=== PATIENT | male | born 1995 | race Caucasian/White ===

== ENCOUNTER 2018-12-31 12:27 | Emergency (ER) | payer BC ==
--- NOTE | 2018-12-31 14:43 | ER ---
Nurse's Notes [facility] Name: Iain Felix Age: 23 yrs Sex: Male : 1995 Arrival Date: 12/31/2018 Time: 12:30 Bed 10 Private MD: Diagnosis: Acute bronchitis Presentation: 12/31 12:40 Presenting complaint: Patient states: i am real congested and have this cough since tw2 last Saturday, i have been spitting up the mucous its red and brownish, i feel like i am sob, i get a sharp stabbing pain in the chest, i have been throwing up and feel lightheaded, nauseous. Transition of care: patient was not received from another setting of care. Resp Distress? No respiratory distress is noted at this time. Onset of symptoms was December 31, 2018. Risk Assessment: Do you want to hurt yourself or someone else? Patient reports no desire to harm self or others. Initial Sepsis Screen: Does the patient meet any 2 criteria? HR > 90 bpm. Does the patient have a suspected source of infection? No. Patient's initial sepsis screen is negative. Care prior to arrival: None. 12:40 Method Of Arrival: Ambulatory tw2 12:40 Acuity: ZULEMA 4 tw2 Triage Assessment: 12:43 General: Appears in no apparent distress. slender, Behavior is calm, cooperative, tw2 appropriate for age. Pain: Complains of pain in chest with cough. Respiratory:. Historical: - Allergies: 12:43 No Known Allergies; tw2 - Home Meds: 12:43 None [Active]; tw2 - PMHx: 12:43 autonomic nerve disfuction last year; tw2 - PSHx: 12:43 Appendectomy; i have a link recorder implanted and it monitors my heart; tw2 - Immunization history:: Adult Immunizations Adult Immunizations up to date. - Social history:: Smoking status: Patient/guardian denies using tobacco. - Ebola Screening: : Patient denies travel to an Ebola-affected area in the 21 days before illness onset. Screenin:50 Abuse screen: Denies threats or abuse. Denies injuries from another. Nutritional iw screening: No deficits noted. Tuberculosis screening: No symptoms or risk factors identified. Fall Risk None identified. Assessment: 14:00 General: Appears in no apparent distress. comfortable. Pain:. Neuro: Level of iw Consciousness is awake, alert, obeys commands. Cardiovascular: Capillary refill < 3 seconds in bilateral fingers Patient's skin is warm and dry. Respiratory: Airway is patent Breath sounds are clear bilaterally. Derm: Skin is intact, is healthy with good turgor. Musculoskeletal: Range of motion: intact in all extremities. Vital Signs: 12:41 BP 133 / 86; Pulse 107; Resp 19; Temp 98.4(O); Pulse Ox 99% on R/A; Weight 72.57 kg tw2 (R); Height 5 ft. 9 in. (175.26 cm); Pain 8/10; 12:41 Body Mass Index 23.63 (72.57 kg, 175.26 cm) tw2 ED Course: 12:30 Patient arrived in ED. rg4 12:41 Triage completed. tw2 12:41 Arm band placed on. tw2 12:47 Garrett Tristan PA is PHCP. [facility] 12:47 Emil Casey MD is Attending Physician. [facility] 12:50 Desirae Thomson, RN is Primary Nurse. iw 13:41 Flu and/or RSV swab sent to lab. Strep swab sent to lab. iw 14:00 Patient has correct armband on for positive identification. iw 14:50 No provider procedures requiring assistance completed. Patient did not have IV access iw during this emergency room visit. Administered Medications: No medications were administered Outcome: 14:41 Discharge ordered by . [facility] 14:50 Discharged to home ambulatory, with family. iw 14:50 Condition: good 14:50 Discharge instructions given to patient, Instructed on discharge instructions, follow up and referral plans. Demonstrated understanding of instructions, follow-up care, medications. 14:50 Prescriptions given X 1. iw 14:51 Patient left the ED. iw Signatures: Garrett Tristan PA PA Desirae Cuellar, RN RN Yi Steward RN RN 2 Lilly Cota rg4
--- NOTE | 2018-12-31 14:43 | EDPHYS ---
Physician Documentation [facility] Name: Iain Felix Age: 23 yrs Sex: Male : 1995 Arrival Date: 12/31/2018 Time: 12:30 Bed 10 Private MD: ED Physician Emil Casey HPI: 12/31 13:30 This 23 yrs old Male presents to ER via Ambulatory with complaints of Cough, jmm Congestion. 13:30 The patient or guardian reports cough. Onset: The symptoms/episode began/occurred jmm gradually. Associated signs and symptoms: Pertinent positives: chest pain, with cough, fever, sore throat. This is a 23 year old male with a history of autonomic nerve dysfunction that presents to the ED with complaints of cough, sore throat, for the past 6 days. . Historical: - Allergies: 12:43 No Known Allergies; tw2 - Home Meds: 12:43 None [Active]; tw2 - PMHx: 12:43 autonomic nerve disfuction last year; tw2 - PSHx: 12:43 Appendectomy; i have a link recorder implanted and it monitors my heart; tw2 - Immunization history:: Adult Immunizations Adult Immunizations up to date. - Social history:: Smoking status: Patient/guardian denies using tobacco. - Ebola Screening: : Patient denies travel to an Ebola-affected area in the 21 days before illness onset. ROS: 13:30 Constitutional: Negative for fever, chills, and weight loss. jmm 13:30 ENT: Positive for sinus congestion, sore throat. 13:30 Cardiovascular: Positive for chest pain, with cough. 13:30 Respiratory: Positive for cough. 13:30 All other systems are negative. Exam: 13:30 Constitutional: This is a well developed, well nourished patient who is awake, alert, jmm and in no acute distress. Head/Face: atraumatic. Eyes: EOMI, no conjunctival erythema appreciated Neck: Trachea midline, Supple 13:30 Chest/axilla: Normal chest wall appearance and motion. 13:30 ENT: Posterior pharynx: erythema, that is mild. 13:30 Cardiovascular: Rate: normal, Rhythm: regular. 13:30 Respiratory: the patient does not display signs of respiratory distress, Respirations: normal, Breath sounds: are clear throughout. 13:30 Abdomen/GI: 13:30 Skin: Appearance: Color: normal in color. 13:30 Neuro: Orientation: is normal, Mentation: is normal, Memory: is normal, Gait: is steady. 13:30 Psych: Behavior/mood is pleasant, cooperative. Vital Signs: 12:41 BP 133 / 86; Pulse 107; Resp 19; Temp 98.4(O); Pulse Ox 99% on R/A; Weight 72.57 kg tw2 (R); Height 5 ft. 9 in. (175.26 cm); Pain 8/10; 12:41 Body Mass Index 23.63 (72.57 kg, 175.26 cm) tw2 MDM: 13:29 Patient medically screened. [facility] 14:36 Data reviewed: vital signs, nurses notes. Counseling: I had a detailed discussion with taylor the patient and/or guardian regarding: the historical points, exam findings, and any diagnostic results supporting the discharge/admit diagnosis, lab results, the need for outpatient follow up, to return to the emergency department if symptoms worsen or persist or if there are any questions or concerns that arise at home. ED course: Patient is alert and non toxic in appearance in the ED. Patient advised to follow up with PCP for reevaluation. Patient is otherwise given strict return precautions. . 12/31 13:05 Order name: Flu; Complete Time: 14:31 [facility] 12/31 13:05 Order name: Strep; Complete Time: 14:31 [facility] 12/31 14:19 Order name: Throat Culture EDID Administered Medications: No medications were administered Disposition: 18:50 Co-signature as Attending Physician, Emil Casey MD Available for consultation at ps1 all times. . Disposition: 12/31/18 14:41 Discharged to Home. Impression: Acute bronchitis. - Condition is Stable. - Discharge Instructions: Acute Bronchitis, Adult. - Prescriptions for cefdinir 300 mg Oral capsule - take 1 capsule by ORAL route every 12 hours for 10 days; 20 capsule. - Medication Reconciliation Form, Thank You Letter, Antibiotic Education, Prescription Opioid Use, Work release form, Family Work Release form. - Follow up: Private Physician; When: 2 - 3 days; Reason: Recheck today's complaints, Continuance of care, Re-evaluation by your physician. Signatures: Dispatcher [employer] EDMS Garrett Tristan PA PA jmm Williams, Irene, RN RN iw Yi Steward RN RN tw2 Emil Casey MD MD ps1 Corrections: (The following items were deleted from the chart) 14:51 14:41 12/31/2018 14:41 Discharged to Home. Impression: Acute bronchitis. Condition is iw Stable. Forms are Medication Reconciliation Form, Thank You Letter, Antibiotic Education, Prescription Opioid Use. Follow up: Private Physician; When: 2 - 3 days; Reason: Recheck today's complaints, Continuance of care, Re-evaluation by your physician. taylor
== END 2018-12-31 14:51 | disposition home or self-care (01) ==
LOC: ER 12:27
DX: J20.9 Acute bronchitis, unspecified (principal)
CPT/HCPCS: 87070; 87081; 87804; 99283

== ENCOUNTER 2019-04-23 02:32 | Emergency (ER) | payer BC ==
--- OUTSIDE RECORDS SUMMARY | 2019-04-23 02:34 | XMS REPORT | Clinical Summary ---
:1995 Author Organization [facility] Address [address] [place] [address] Care Team Providers Name Role Phone Asked, No Pcp Primary Care Provider Unavailable Allergies No Known Allergies Medications Not on file Active Problems Not on file Social History Tobacco Use Types Packs/Day Years Used Date Never Smoker Smokeless Tobacco: Never Used Alcohol Use Drinks/Week oz/Week Comments No Sex Assigned at Date Recorded Not on file Job Start Date Occupation Industry Not on file Not on file Not on file Travel History Travel Start Travel End No recent travel history available. Last Filed Vital Signs Not on file Plan of Treatment Health Maintenance Due Date Last Done Comments INFLUENZA VACCINE 06/11/2019 Results Not on fileafter 04/22/2018 Advance Directives Patient has advance care planning documents on file. For more information, please contact:[address] [address]
--- OUTSIDE RECORDS SUMMARY | 2019-04-23 02:35 | XMS REPORT | Clinical Summary ---
:1995 Author Organization [facility] Address [address] [facility] [place] [address] Care Team Providers Name Role Phone Brissa Primary Care Provider Allergies No Known Allergies Medications Not on file Active Problems Not on file Social History Tobacco Use Types Packs/Day Years Used Date Never Assessed Sex Assigned at Date Recorded Not on file Job Start Date Occupation Industry Not on file Not on file Not on file Travel History Travel Start Travel End No recent travel history available. 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
--- OUTSIDE RECORDS SUMMARY | 2019-04-23 02:36 | XMS REPORT | Continuity of Care Document ---
:1995 Author Organization Interface Problems Problem Status Onset Classification Date Comments Source Date Reported SCABIES Active 03/28/20 Condition 03/28/2015 [facility] RASH, SKIN Active 03/01/20 Condition 03/28/2015 [facility] SINUSITIS, ACUTE Active 09/21/20 Condition 03/28/2015 [facility] BACK PAIN Active 09/21/20 Condition 03/28/2015 [facility] Medical Group ROUTINE GENERAL Active 12/11/19 Condition 03/28/2015 [email or web address] 14 Medical CARE FACL Group SVT Active 09/23/20 Condition 03/28/2015 [facility] CHEST PAIN Active 09/23/20 Condition 03/28/2015 [facility] Medical Group SYNCOPE Active 07/28/20 Condition 03/28/2015 [facility] Medical Group LOSS OF WEIGHT Active 07/28/20 Condition 03/28/2015 [facility] MALAISE AND FATIGUE Active 07/25/20 Condition 03/28/2015 [facility] Medical Group FAMILY HISTORY OF Active Condition 03/28/2015 [facility] FAMILY HISTORY OF Active Condition 03/28/2015 [facility] FAMILY HISTORY OF Active Condition 03/28/2015 [facility]YRO[facility] DISEASE [facility] ABNORMAL Active Condition 03/28/2015 [facility] ORTHOSTATIC Active Condition 03/28/2015 [facility] Medications Medication Details Route Status Patient Ordering Order Source Instructions Provider Date ELIMITE 5 % CREA Use as Active directed on [facility] label Group MOMETASONE FUROATE apply to Active 0.1 % CREA rash tid [facility] CEFUROXIME AXETIL 1 po bid No 500 MG TABS Longer 014 Medical Active Group CYCLOBENZAPRINE 1 po q 8hrs Active HCL 10 MG TABS prn back 014 [facility] pain Group CYCLOBENZAPRINE 1 po q 8hrs Active HCL 10 MG TABS prn back 014 [facility] pain Group CYCLOBENZAPRINE 1 po q 8hrs No HCL 10 MG TABS prn back Longer 014 Medical pain Active Group MIDODRINE HCL 5 MG ONE TAB TID No TABS Longer 014 [facility] Active Group Allergies, Adverse Reactions, Alerts Substance Category Reaction Severity Reaction Status Date Comments Source type Reported Immunizations Immunization Date Given Site Status Last Comments Source Updated dT (Diphtheria and 07/08/2009 completed Medical Tetanus) booster Group MPSV4 07/08/2009 completed Medical (meningococcal Group polysaccharide vaccination) hepatitis A 07/08/2009 completed Medical immunization #1 Group dT (Diphtheria and 07/08/2009 completed Medical Tetanus) booster Group given DPT immunization #5 07/10/1999 completed Medical Group oral polio vaccine 07/10/1999 completed Medical (OPV) #4 Group MMR virus 07/10/1999 completed Medical immunization #2 Group MMR (measles, 07/10/1999 completed Medical mumps, rubella) Group virus immunization #2 DPT immunization #4 10/29/1996 completed Medical Group Hemophilus 10/29/1996 completed Medical influenza B Group immunization #4 MMR virus 10/29/1996 completed Medical immunization #1 Group MMR (measles, 10/29/1996 completed Medical mumps, rubella) Group virus immunization #1 hepatitis B vaccine 03/11/1996 completed Medical #3 Group DPT immunization #3 03/11/1996 completed Medical Group Hemophilus 03/11/1996 completed Medical influenza B Group immunization #3 oral polio vaccine 03/11/1996 completed Medical (OPV) #3 Group DPT immunization #2 01/14/1996 completed Medical Group Hemophilus 01/14/1996 completed Medical influenza B Group immunization #2 oral polio vaccine 01/14/1996 completed Medical (OPV) #2 Group Hemophilus 1995 completed Medical influenza B Group immunization #1 oral polio vaccine 1995 completed Medical (OPV) #1 Group DPT immunization #1 1995 completed Medical Group hepatitis B vaccine 1995 completed Medical #2 Group hepatitis B vaccine 1995 completed Medical #2 given Group hepatitis B vaccine 1995 completed Medical #1 Group hepatitis B vaccine 1995 completed Medical #1 given Group Results Order Name Results Value Reference Date Interpretation Comments Source Range Chemistry SODIUM 136 135 - 143 mmol/L 2013 [facility] Group Chemistry POTASSIUM 3.9 3.3 - 5.0 mmol/L 2013 [facility] Chemistry ALBUMIN 3.9 g/dL 3.5 - 5.0 2013 [facility] Chemistry CALCIUM 9.4 8.6 - 9.8 mg/dL 2013 [facility] Group Chemistry CREATININE 1.06 0.46 - 1.20 mg/dL 2013 Medical Group Chemistry BUN 13 mg/dL 10 - 22 2013 Medical Group Chemistry ALK PHOS 59 U/L 32 - 96 2013 [facility] Chemistry SGOT (AST) 20 U/L 13 - 38 2013 [facility] Chemistry SGPT (ALT) 13 U/L 8 - 36 2013 [facility] Chemistry CPK 60 U/L 18 - 164 2013 Medical Group Serology VARICELLA AB 2.50 2013 Medical Group Serology VARICELLA AB 2.50 2013 [facility] Group Vital Signs Vital Sign Value Date Comments Source Weight 138 03/28/2015 Medical Group Temperature Oral (F) 98.1 F 03/28/2015 Medical Group Systolic (mm Hg) 110 03/28/2015 Medical Group Diastolic (mm Hg) 75 03/28/2015 Medical Group Heart Rate 80 03/28/2015 Medical Group Respitory Rate 18 03/28/2015 Medical Group Weight 139 03/24/2015 Medical Group Respitory Rate 18 03/24/2015 Medical Group Systolic (mm Hg) 113 03/24/2015 Medical Group Diastolic (mm Hg) 71 03/24/2015 Medical Group Heart Rate 78 03/24/2015 Medical Group Weight 138 03/01/2015 Medical Group Systolic (mm Hg) 110 03/01/2015 Medical Group Diastolic (mm Hg) 75 03/01/2015 Medical Group Temperature Oral (F) 98.2 F 03/01/2015 Medical Group Heart Rate 76 03/01/2015 Medical Group Respitory Rate 16 03/01/2015 Medical Group Weight 130 09/21/2014 Medical Group Temperature Oral (F) 98.8 F 09/21/2014 Medical Group Systolic (mm Hg) 118 09/21/2014 [facility] Diastolic (mm Hg) 81 09/21/2014 Medical Group Heart Rate 92 09/21/2014 [facility] Weight 130 06/03/2014 [facility] Systolic (mm Hg) 108 06/03/2014 Medical Group Diastolic (mm Hg) 70 06/03/2014 [facility] Group Temperature Oral (F) 97.6 F 06/03/2014 [facility] Heart Rate 71 06/03/2014 [facility] Respitory Rate 10 06/03/2014 [facility] Weight 133 12/11/2013 Medical Group Temperature Oral (F) 97.7 F 12/11/2013 [facility] Systolic (mm Hg) 120 12/11/2013 [facility] Diastolic (mm Hg) 68 12/11/2013 Medical Group Heart Rate 76 12/11/2013 Medical Group Weight 127.8 04/23/2013 [facility] Systolic (mm Hg) 90 04/23/2013 [facility] Diastolic (mm Hg) 68 04/23/2013 [facility] Heart Rate 72 04/23/2013 [facility] Group Heart Rate 68 10/23/2012 [facility] Systolic (mm Hg) 90 10/23/2012 Medical Group Diastolic (mm Hg) 50 10/23/2012 Medical Group Weight 131.8 09/23/2012 [facility] Group Heart Rate 84 09/23/2012 [facility] Systolic (mm Hg) 98 09/23/2012 [facility] Diastolic (mm Hg) 70 09/23/2012 Medical Group Weight 131.6 09/04/2012 Medical Group Temperature Oral (F) 98.5 F 09/04/2012 Medical Group Heart Rate distal pulses 2+ 09/04/2012 [facility] Systolic (mm Hg) 90 09/04/2012 Medical Group Diastolic (mm Hg) 60 09/04/2012 Medical Group Weight 128 08/19/2012 Medical Group Heart Rate 72 08/19/2012 [facility] Systolic (mm Hg) 105 08/19/2012 [facility] Diastolic (mm Hg) 70 08/19/2012 Medical Group Weight 129.8 08/06/2012 Medical Group Heart Rate 84 08/06/2012 [facility] Systolic (mm Hg) 95 08/06/2012 Medical Group Diastolic (mm Hg) 60 08/06/2012 Medical Group Weight 123 07/28/2012 Medical Group Temperature Oral (F) 98.2 F 07/28/2012 Medical Group Respitory Rate 18 07/28/2012 Medical Group Heart Rate distal pulses 2+ 07/28/2012 Medical Group Systolic (mm Hg) 90 07/28/2012 Medical Group Diastolic (mm Hg) 60 07/28/2012 Medical Group Height 67 07/25/2012 Medical Group Weight 122 07/25/2012 Medical Group Temperature Oral (F) 98.2 F 07/25/2012 Medical Group Heart Rate 76 07/25/2012 Medical Group Systolic (mm Hg) 106 07/25/2012 Medical Group Diastolic (mm Hg) 74 07/25/2012 [facility] Group Encounters Location Location Encounter Encounter Reason Attending ADM DC Status Source Details Type Number For Provider Date Date Visit [facility] Lab Report [id number] Majid 06/03 06/03 [place] [facility] 510 MD Rambo /2013 Medical [facility] Office [id number] Majid 06/03 06/03 [place] Visit 010 MD Rambo /2013 Medical [facility] Lab Report [id number] Horace 09/21 09/21 [place] [facility] 810 LISA Hernández /2013 Medical [facility] Lab Report [id number] Horace 11/14 11/14 [address] LISA Hernández /2014 Medical Medical [facility] Office [id number] [facility] 03/01 03/01 [place] Medical Visit 210 LISA Hernández /2014 Medical [facility] Practice [facility] Office [id number] Majid 03/24 03/24 [place] Medical Visit 830 MD Rambo /2014 Medical [facility] Cardiology [facility] Office [id number] Majid 03/28 03/28 [place] Medical Visit 830 MD Rambo /2014 [facility] Procedures Procedure Code Date Perfomer Comments Source echocardiogram, [address] 08/12/2012 Complete Medical [facility]
--- OUTSIDE RECORDS SUMMARY | 2019-04-23 02:36 | XMS REPORT | Continuity of Care Document ---
:1995 Author Organization [facility] Care Team Providers Name Role Phone MD Rambo, Vickie Unavailable Unavailable Insurance Providers Payer name Policy type / Policy ID Covered constitution party ID Policy Thrasher Coverage type BCBS PPO PRIMARY HUMANA CHOICE CARE PRIMARY HUMANA - NATIONAL POS - OPEN ACCESS *SELF PAY* HUMANA - NATIONAL POS - OPEN ACCESS RH ADMINISTRATORS - MULTIPLAN (PPO) HUMANA - NATIONAL POS - OPEN ACCESS HUMANA - NATIONAL POS - OPEN ACCESS HUMANA - NATIONAL POS - OPEN ACCESS *SELF PAY* HUMANA - NATIONAL POS - OPEN ACCESS *SELF PAY* HUMANA - NATIONAL POS - OPEN ACCESS *SELF PAY* HUMANA - NATIONAL POS - OPEN ACCESS HUMANA - CHOICECARE (POS) RH ADMINISTRATORS - MULTIPLAN (PPO) *SELF PAY* HUMANA - NATIONAL POS - OPEN ACCESS RH ADMINISTRATORS - MULTIPLAN (PPO) *SELF PAY* HUMANA - NATIONAL POS - OPEN ACCESS RH ADMINISTRATORS - MULTIPLAN (PPO) *SELF PAY* HUMANA - NATIONAL POS - OPEN ACCESS RH ADMINISTRATORS - MULTIPLAN (PPO) HUMANA - CHOICECARE (POS) *SELF PAY* HUMANA - NATIONAL POS - OPEN ACCESS HUMANA - CHOICECARE (POS) *SELF PAY* HUMANA - NATIONAL POS - OPEN ACCESS Encounters Encounter Performer Location Date Office Visit Vickie Ricks MD [facility] Jun 03, 2014 Practice Problems Problem Effective Dates Problem Status FAMILY HISTORY OF DIABETES Active FAMILY HISTORY OF HYPERTENSION Active FAMILY HISTORY OF THYROID DISEASE Active MALAISE AND FATIGUE Jul 25, 2012 Active SYNCOPE Jul 28, 2012 Active LOSS OF WEIGHT Jul 28, 2012 Active ABNORMAL ELECTROCARDIOGRAM Active SVT Sep 23, 2012 Active CHEST PAIN Sep 23, 2012 Active ORTHOSTATIC HYPOTENSION Active ROUTINE GENERAL MEDICAL EXAM@[facility] Dec 11, 2013 Active Procedures Date Description Comments Jul 25, 2012 smoking status never smoker Aug 12, 2012 echocardiogram, complete Complete Apr 23, 2013 smoking status never smoker Jun 03, 2014 smoking status Never smoker Medications Medication Instructions Start Date Status MIDODRINE HCL 5 MG TABS ONE TAB TID Inactive Immunizations Vaccine Date Status hepatitis B vaccine #1 1995 completed hepatitis B vaccine #2 1995 completed hepatitis B vaccine #3 March 11, 1996 completed DPT immunization #1 1995 completed DPT immunization #2 Jan 14, 1996 completed DPT immunization #3 March 11, 1996 completed DPT immunization #4 Oct 29, 1996 completed DPT immunization #5 Jul 10, 1999 completed Hemophilus influenza B immunization #1 1995 completed Hemophilus influenza B immunization #2 Jan 14, 1996 completed Hemophilus influenza B immunization #3 March 11, 1996 completed Hemophilus influenza B immunization #4 Oct 29, 1996 completed oral polio vaccine (OPV) #1 1995 completed oral polio vaccine (OPV) #2 Jan 14, 1996 completed oral polio vaccine (OPV) #3 March 11, 1996 completed oral polio vaccine (OPV) #4 Jul 10, 1999 completed MMR virus immunization #1 Oct 29, 1996 completed MMR virus immunization #2 Jul 10, 1999 completed dT (Diphtheria and Tetanus) booster Jul 08, 2009 completed MPSV4 (meningococcal polysaccharide vaccination) Jul 08, 2009 completed hepatitis A immunization #1 Jul 08, 2009 completed Vital Signs Date Description Test Result Jul 25, 2012 height E&M HEIGHT 67 in Jul 25, 2012 weight E&M WEIGHT 122 lb Jul 25, 2012 temperature E&M TEMPERATURE 98.2 deg f Jul 25, 2012 pulse rate E&M PULSE RATE 76 /min Jul 25, 2012 blood pressure, systolic BP SYSTOLIC 106 mm Hg Jul 25, 2012 blood pressure, diastolic BP DIASTOLIC 74 mm Hg Jul 28, 2012 weight E&M WEIGHT 123 lb Jul 28, 2012 temperature E&M TEMPERATURE 98.2 deg f Jul 28, 2012 respiratory rate E&M RESP RATE 18 /min Jul 28, 2012 pulse rate E&M PULSE RATE distal pulses 2+ /min Jul 28, 2012 blood pressure, systolic BP SYSTOLIC 90 mm Hg Jul 28, 2012 blood pressure, diastolic BP DIASTOLIC 60 mm Hg Aug 06, 2012 weight E&M WEIGHT 129.8 lb Aug 06, 2012 pulse rate E&M PULSE RATE 84 /min Aug 06, 2012 blood pressure, systolic, sitting, BP SYS SIT L 95 mm Hg left arm Aug 06, 2012 blood pressure, diastolic, sitting, BP ERICH SIT L 60 mm Hg left arm Aug 06, 2012 pulse rate, sitting, left PULSE SIT L 84 /min Aug 19, 2012 weight E&M WEIGHT 128 lb Aug 19, 2012 pulse rate E&M PULSE RATE 72 /min Aug 19, 2012 blood pressure, systolic, sitting, BP SYS SIT L 105 mm Hg left arm Aug 19, 2012 blood pressure, diastolic, sitting, BP ERICH SIT L 70 mm Hg left arm Aug 19, 2012 pulse rate, sitting, left PULSE SIT L 72 /min Aug 19, 2012 blood pressure, systolic BP SYSTOLIC 105 mm Hg Aug 19, 2012 blood pressure, diastolic BP DIASTOLIC 70 mm Hg Sep 04, 2012 weight E&M WEIGHT 131.6 lb Sep 04, 2012 temperature E&M TEMPERATURE 98.5 deg f Sep 04, 2012 pulse rate E&M PULSE RATE distal pulses 2+ /min Sep 04, 2012 blood pressure, systolic BP SYSTOLIC 90 mm Hg Sep 04, 2012 blood pressure, diastolic BP DIASTOLIC 60 mm Hg Sep 23, 2012 weight E&M WEIGHT 131.8 lb Sep 23, 2012 pulse rate E&M PULSE RATE 84 /min Sep 23, 2012 pulse rate, sitting, left PULSE SIT L 84 /min Sep 23, 2012 blood pressure, systolic, sitting, BP SYS SIT L 98 mm Hg left arm Sep 23, 2012 blood pressure, diastolic, sitting, BP ERICH SIT L 70 mm Hg left arm Sep 23, 2012 blood pressure, systolic BP SYSTOLIC 98 mm Hg Sep 23, 2012 blood pressure, diastolic BP DIASTOLIC 70 mm Hg Oct 23, 2012 pulse rate E&M PULSE RATE 68 /min Oct 23, 2012 pulse rate, sitting, left PULSE SIT L 68 /min Oct 23, 2012 blood pressure, systolic, sitting, BP SYS SIT L 90 mm Hg left arm Oct 23, 2012 blood pressure, diastolic, sitting, BP ERICH SIT L 50 mm Hg left arm Oct 23, 2012 blood pressure, systolic BP SYSTOLIC 90 mm Hg Oct 23, 2012 blood pressure, diastolic BP DIASTOLIC 50 mm Hg Apr 23, 2013 weight E&M WEIGHT 127.8 lb Apr 23, 2013 blood pressure, systolic, sitting, BP SYS SIT L 90 mm Hg left arm Apr 23, 2013 blood pressure, diastolic, sitting, BP ERICH SIT L 68 mm Hg left arm Apr 23, 2013 pulse rate, sitting, left PULSE SIT L 72 /min Apr 23, 2013 blood pressure, systolic BP SYSTOLIC 90 mm Hg Apr 23, 2013 pulse rate E&M PULSE RATE 72 /min Apr 23, 2013 blood pressure, diastolic BP DIASTOLIC 68 mm Hg Dec 11, 2013 weight E&M WEIGHT 133 lb Dec 11, 2013 temperature E&M TEMPERATURE 97.7 deg f Dec 11, 2013 blood pressure, systolic BP SYSTOLIC 120 mm Hg Dec 11, 2013 blood pressure, diastolic BP DIASTOLIC 68 mm Hg Dec 11, 2013 pulse rate E&M PULSE RATE 76 /min Jun 03, 2014 weight E&M WEIGHT 130 lb Jun 03, 2014 blood pressure, systolic BP SYSTOLIC 108 mm Hg Jun 03, 2014 blood pressure, diastolic BP DIASTOLIC 70 mm Hg Jun 03, 2014 temperature E&M TEMPERATURE 97.6 deg f Jun 03, 2014 pulse rate E&M PULSE RATE 71 /min Jun 03, 2014 respiratory rate E&M RESP RATE 10 /min
--- OUTSIDE RECORDS SUMMARY | 2019-04-23 02:36 | XMS REPORT | Continuity of Care Document ---
:[address] [facility] Care Team Providers Name Role Phone [...] - OPEN ACCESS *SELF PAY* HUMANA - CHOICECARE (POS) HUMANA - NATIONAL POS - OPEN ACCESS *SELF PAY* HUMANA - CHOICECARE (POS) HUMANA - NATIONAL POS - OPEN ACCESS *SELF PAY* HUMANA - CHOICECARE (POS) HUMANA - NATIONAL POS - OPEN ACCESS Encounters Encounter Performer Location Date Lab Report Vickie Ricks MD [facility] Jun 03, 2014 Problems Problem Effective Dates Problem Status FAMILY [...] respiratory rate E&M RESP RATE 10 /min Results Date Description Test Name Value Reference Interpretation Status Jun 03, 2014 varicella zoster VARICELLA AB 2.50 null High antibody, IgG, serum
--- OUTSIDE RECORDS SUMMARY | 2019-04-23 02:37 | XMS REPORT | Continuity of Care Document ---
:1995 Author Organization [facility] Care Team Providers Name Role Phone LISA Hernández, Horace Hurtado Unavailable Insurance Providers Payer name Policy type / Policy ID Covered democrat ID Policy Thrasher Coverage type BCBS PPO [...] ACCESS *SELF PAY* HUMANA - CHOICECARE (POS) *SELF PAY* HUMANA - NATIONAL POS - OPEN ACCESS *SELF PAY* HUMANA - CHOICECARE (POS) *SELF PAY* HUMANA - NATIONAL POS - OPEN ACCESS *SELF PAY* HUMANA - CHOICECARE (POS) *SELF PAY* HUMANA - NATIONAL POS - OPEN ACCESS *SELF PAY* HUMANA - CHOICECARE (POS) *SELF PAY* HUMANA - NATIONAL POS - OPEN ACCESS *SELF PAY* HUMANA - CHOICECARE (POS) *SELF PAY* HUMANA - NATIONAL POS - OPEN ACCESS Encounters Encounter Performer Location Date Lab Report LISA [place] [facility] Sep 21, 2014 Practice Problems Problem Effective Dates Problem [...] [email or web address][facility] Dec 11, 2013 Active SINUSITIS, ACUTE MAXILLARY Sep 21, 2014 Active BACK PAIN Sep 21, 2014 Active Procedures Date Description Comments Jul 25, 2012 smoking status never smoker Aug 12, 2012 echocardiogram, complete Complete Apr 23, 2013 smoking status never smoker Jun 03, 2014 smoking status Never smoker Sep 21, 2014 smoking status Never smoker Medications Medication Instructions Start Date Status MIDODRINE HCL 5 MG TABS ONE TAB TID Inactive CEFUROXIME AXETIL 500 MG TABS 1 po bid Sep 21, 2014 Active CYCLOBENZAPRINE HCL 10 MG TABS 1 po q 8hrs prn back pain Sep 21, 2014 Active Immunizations Vaccine Date Status hepatitis B vaccine #1 given 1995 completed hepatitis B vaccine #2 given 1995 completed hepatitis B vaccine #3 March [...] (OPV) #4 Jul 10, 1999 completed MMR (measles, mumps, rubella) virus immunization #1 Oct 29, 1996 completed MMR (measles, mumps, rubella) virus immunization #2 Jul 10, 1999 completed dT (Diphtheria and Tetanus) booster given Jul 08, 2009 completed MPSV4 (meningococcal polysaccharide vaccination) Jul 08, 2009 completed hepatitis A immunization #1 Jul 08, 2009 completed Vital Signs Date Description Test Result Jul 25, 2012 height E&M - 8302-2 HEIGHT 67 in Jul 25, 2012 weight E&M - 3141-9 WEIGHT 122 lb Jul 25, 2012 temperature E&M TEMPERATURE 98.2 deg f Jul 25, 2012 pulse rate E&M - 8867-4 PULSE RATE 76 /min Jul 25, 2012 blood pressure, systolic - 8480-6 BP SYSTOLIC 106 mm Hg Jul 25, 2012 blood pressure, diastolic - 8462-4 BP DIASTOLIC 74 mm Hg Jul 28, 2012 weight E&M - 3141-9 WEIGHT 123 lb Jul 28, 2012 temperature E&M TEMPERATURE 98.2 deg f Jul 28, 2012 respiratory rate E&M - 9279-1 RESP RATE 18 /min Jul 28, 2012 pulse rate E&M - 8867-4 PULSE RATE distal pulses 2+ /min Jul 28, 2012 blood pressure, systolic - 8480-6 BP SYSTOLIC 90 mm Hg Jul 28, 2012 blood pressure, diastolic - 8462-4 BP DIASTOLIC 60 mm Hg Aug 06, 2012 weight E&M - 3141-9 WEIGHT 129.8 lb Aug 06, 2012 pulse rate E&M - 8867-4 PULSE RATE 84 /min Aug 06, 2012 blood pressure, systolic, sitting, BP SYS SIT L 95 mm Hg left arm Aug 06, 2012 blood pressure, diastolic, sitting, BP ERICH SIT L 60 mm Hg left arm Aug 06, 2012 pulse rate, sitting, left PULSE SIT L 84 /min Aug 19, 2012 weight E&M - 3141-9 WEIGHT 128 lb Aug 19, 2012 pulse rate E&M - 8867-4 PULSE RATE 72 /min Aug 19, 2012 blood pressure, systolic, sitting, BP SYS SIT L 105 mm Hg left arm Aug 19, 2012 blood pressure, diastolic, sitting, BP ERICH SIT L 70 mm Hg left arm Aug 19, 2012 pulse rate, sitting, left PULSE SIT L 72 /min Aug 19, 2012 blood pressure, systolic - 8480-6 BP SYSTOLIC 105 mm Hg Aug 19, 2012 blood pressure, diastolic - 8462-4 BP DIASTOLIC 70 mm Hg Sep 04, 2012 weight E&M - 3141-9 WEIGHT 131.6 lb Sep 04, 2012 temperature E&M TEMPERATURE 98.5 deg f Sep 04, 2012 pulse rate E&M - 8867-4 PULSE RATE distal pulses 2+ /min Sep 04, 2012 blood pressure, systolic - 8480-6 BP SYSTOLIC 90 mm Hg Sep 04, 2012 blood pressure, diastolic - 8462-4 BP DIASTOLIC 60 mm Hg Sep 23, 2012 weight E&M - 3141-9 WEIGHT 131.8 lb Sep 23, 2012 pulse rate E&M - 8867-4 PULSE RATE 84 /min Sep 23, 2012 pulse rate, sitting, left PULSE SIT L 84 /min Sep 23, 2012 blood pressure, systolic, sitting, BP SYS SIT L 98 mm Hg left arm Sep 23, 2012 blood pressure, diastolic, sitting, BP ERICH SIT L 70 mm Hg left arm Sep 23, 2012 blood pressure, systolic - 8480-6 BP SYSTOLIC 98 mm Hg Sep 23, 2012 blood pressure, diastolic - 8462-4 BP DIASTOLIC 70 mm Hg Oct 23, 2012 pulse rate E&M - 8867-4 PULSE RATE 68 /min Oct 23, 2012 pulse rate, sitting, left PULSE SIT L 68 /min Oct 23, 2012 blood pressure, systolic, sitting, BP SYS SIT L 90 mm Hg left arm Oct 23, 2012 blood pressure, diastolic, sitting, BP ERICH SIT L 50 mm Hg left arm Oct 23, 2012 blood pressure, systolic - 8480-6 BP SYSTOLIC 90 mm Hg Oct 23, 2012 blood pressure, diastolic - 8462-4 BP DIASTOLIC 50 mm Hg Apr 23, 2013 weight E&M - 3141-9 WEIGHT 127.8 lb Apr 23, 2013 blood pressure, systolic, sitting, BP SYS SIT L 90 mm Hg left arm Apr 23, 2013 blood pressure, diastolic, sitting, BP ERICH SIT L 68 mm Hg left arm Apr 23, 2013 pulse rate, sitting, left PULSE SIT L 72 /min Apr 23, 2013 blood pressure, systolic - 8480-6 BP SYSTOLIC 90 mm Hg Apr 23, 2013 pulse rate E&M - 8867-4 PULSE RATE 72 /min Apr 23, 2013 blood pressure, diastolic - 8462-4 BP DIASTOLIC 68 mm Hg Dec 11, 2013 weight E&M - 3141-9 WEIGHT 133 lb Dec 11, 2013 temperature E&M TEMPERATURE 97.7 deg f Dec 11, 2013 blood pressure, systolic - 8480-6 BP SYSTOLIC 120 mm Hg Dec 11, 2013 blood pressure, diastolic - 8462-4 BP DIASTOLIC 68 mm Hg Dec 11, 2013 pulse rate E&M - 8867-4 PULSE RATE 76 /min Jun 03, 2014 weight E&M - 3141-9 WEIGHT 130 lb Jun 03, 2014 blood pressure, systolic - 8480-6 BP SYSTOLIC 108 mm Hg Jun 03, 2014 blood pressure, diastolic - 8462-4 BP DIASTOLIC 70 mm Hg Jun 03, 2014 temperature E&M TEMPERATURE 97.6 deg f Jun 03, 2014 pulse rate E&M - 8867-4 PULSE RATE 71 /min Jun 03, 2014 respiratory rate E&M - 9279-1 RESP RATE 10 /min Sep 21, 2014 weight E&M - 3141-9 WEIGHT 130 lb Sep 21, 2014 temperature E&M TEMPERATURE 98.8 deg f Sep 21, 2014 blood pressure, systolic - 8480-6 BP SYSTOLIC 118 mm Hg Sep 21, 2014 blood pressure, diastolic - 8462-4 BP DIASTOLIC 81 mm Hg Sep 21, 2014 pulse rate E&M - 8867-4 PULSE RATE 92 /min Results Date Description Test Name Value Reference Interpretation Status Sep 21, sodium, serum SODIUM 136 mmol/L [phone] Sep 21, potassium, serum POTASSIUM 3.9 mmol/L 3.3-5.0 2013Sep 21, albumin, serum ALBUMIN 3.9 g/dL 3.5-5.0 2013Sep 21, calcium, serum CALCIUM 9.4 mg/dL 8.6-9.8 2013Sep 21, creatinine, serum CREATININE 1.06 mg/dL 0.46-1.20 2013Sep 21, urea nitrogen, blood BUN 13 mg/dL 10-22 2013Sep 21, alkaline phosphatase, ALK PHOS 59 U/L 32-96 2013 serum Sep 21, aspartate SGOT (AST) 20 U/L 13-38 2013 aminotransferase (SGOT), serum Sep 21, alanine SGPT (ALT) 13 U/L 8-36 2013 aminotransferase (SGPT), serum Sep 21, creatine kinase, CPK 60 U/L 18-164 2013 serum Jun 03, varicella zoster VARICELLA AB 2.50 null High 2013 antibody, IgG, serum
--- OUTSIDE RECORDS SUMMARY | 2019-04-23 02:37 | XMS REPORT | Continuity of Care Document ---
:1995 Author Organization [facility] Care Team Providers Name Role Phone LISA [...] Performer Location Date Lab Report LISA [place] [facility] [place] Nov 14, 2014 Problems Problem Effective Dates Problem Status [...] TABS 1 po bid Sep 21, 2014 Inactive CYCLOBENZAPRINE HCL 10 MG TABS 1 po [...] 23, 2012 blood pressure, diastolic, sitting, BP REICH SIT L 50 mm Hg left arm [...] Sep 21, sodium, serum SODIUM 136 mmol/L [phone] Sep 21, potassium, serum POTASSIUM 3.9 mmol/L [...]
--- OUTSIDE RECORDS SUMMARY | 2019-04-23 02:38 | XMS REPORT | Continuity of Care Document ---
:1995 Author Organization [facility] Care Team Providers Name Role Phone LISA [...] Performer Location Date Lab Report LISA [place] [facility] [place] Nov 14, 2014 Problems Problem Effective Dates [...] Sep 21, sodium, serum SODIUM 136 mmol/L [phone] Sep 21, potassium, serum POTASSIUM 3.9 mmol/L [...]
--- OUTSIDE RECORDS SUMMARY | 2019-04-23 02:38 | XMS REPORT | Continuity of Care Document ---
:1995 Author Organization [facility] Care Team Providers Name Role Phone LISA Hernández, Horace Hurtado Unavailable Insurance Providers Payer name Policy type / Policy ID Covered libertarian ID Policy Thrasher Coverage type BCBS PPO [...] Encounters Encounter Performer Location Date Office Visit LISA [place] [facility] Mar 01, 2015 Practice Problems Problem Effective Dates Problem Status [...] Active BACK PAIN Sep 21, 2014 Active RASH, SKIN Mar 01, 2015 Active Procedures Date Description Comments Jul 25, 2012 smoking status never smoker Aug 12, 2012 echocardiogram, complete Complete Apr 23, 2013 smoking status never smoker Jun 03, 2014 smoking status Never smoker Sep 21, 2014 smoking status Never smoker Mar 01, 2015 smoking status Never smoker Medications Medication Instructions Start Date Status MIDODRINE HCL 5 MG TABS ONE TAB TID Inactive CEFUROXIME AXETIL 500 MG TABS 1 po bid Sep 21, 2014 Inactive CYCLOBENZAPRINE HCL 10 MG TABS 1 po q 8hrs prn back pain Sep 21, 2014 Inactive MOMETASONE FUROATE 0.1 % CREA apply to rash tid Mar 01, 2015 Active Immunizations Vaccine Date Status hepatitis B [...] E&M - 8867-4 PULSE RATE 92 /min Mar 01, 2015 weight E&M - 3141-9 WEIGHT 138 lb Mar 01, 2015 blood pressure, systolic - 8480-6 BP SYSTOLIC 110 mm Hg Mar 01, 2015 blood pressure, diastolic - 8462-4 BP DIASTOLIC 75 mm Hg Mar 01, 2015 temperature E&M TEMPERATURE 98.2 deg f Mar 01, 2015 pulse rate E&M - 8867-4 PULSE RATE 76 /min Mar 01, 2015 respiratory rate E&M - 9279-1 RESP RATE 16 /min Results Date Description Test Name Value Reference Interpretation Status Sep 21, sodium, serum SODIUM 136 mmol/L [phone] Sep 21, potassium, serum POTASSIUM 3.9 mmol/L [...]
--- OUTSIDE RECORDS SUMMARY | 2019-04-23 02:39 | XMS REPORT | Continuity of Care Document ---
:1995 Author Organization [facility] Care Team Providers Name Role Phone MD Rambo, Vickie Unavailable Unavailable Insurance Providers Payer name Policy type / Policy ID Covered alliance party ID Policy Thrasher Coverage type BCBS [...] Location Date Office Visit Vickie Ricks MD [facility] March Problems Problem Effective Dates Problem Status FAMILY [...] Mar 01, 2015 smoking status Never smoker March 24, 2015 smoking status Never smoker Medications Medication [...] E&M - 9279-1 RESP RATE 16 /min March 24, 2015 weight E&M - 3141-9 WEIGHT 139 lb March 24, 2015 respiratory rate E&M - 9279-1 RESP RATE 18 /min March 24, 2015 blood pressure, systolic, sitting, BP SYS SIT L 113 mm Hg left arm March 24, 2015 blood pressure, diastolic, sitting, BP ERICH SIT L 71 mm Hg left arm March 24, 2015 pulse rate, sitting, left PULSE SIT L 78 /min March 24, 2015 blood pressure, systolic - 8480-6 BP SYSTOLIC 113 mm Hg March 24, 2015 pulse rate E&M - 8867-4 PULSE RATE 78 /min March 24, 2015 blood pressure, diastolic - 8462-4 BP DIASTOLIC 71 mm Hg Results Date Description Test Name Value Reference Interpretation Status Sep 21, sodium, serum SODIUM 136 mmol/L [phone] Sep 21, potassium, serum POTASSIUM 3.9 mmol/L [...]
--- OUTSIDE RECORDS SUMMARY | 2019-04-23 02:40 | XMS REPORT | Continuity of Care Document ---
:1995 Author Organization [facility] Care Team Providers Name Role Phone MD Rambo, Vickie Unavailable Unavailable Insurance Providers Payer name Policy type / Policy ID Covered republican ID Policy Thrasher Coverage type BCBS PPO [...] Location Date Office Visit Vickie Ricks MD [facility] March 28, 2015 Practice Problems Problem Effective Dates Problem [...] Active RASH, SKIN Mar 01, 2015 Active SCABIES March 28, 2015 Active Procedures Date Description Comments Jul 25, 2012 smoking status never smoker Aug 12, 2012 echocardiogram, complete Complete Apr 23, 2013 smoking status never smoker Jun 03, 2014 smoking status Never smoker Sep 21, 2014 smoking status Never smoker Mar 01, 2015 smoking status Never smoker March 24, 2015 smoking status Never smoker March 28, 2015 smoking status Never smoker Medications Medication Instructions Start Date Status MIDODRINE HCL 5 MG TABS ONE TAB TID Inactive CEFUROXIME AXETIL 500 MG TABS 1 po bid Sep 21, 2014 Inactive CYCLOBENZAPRINE HCL 10 MG TABS 1 po q 8hrs prn back pain Sep 21, 2014 Inactive MOMETASONE FUROATE 0.1 % CREA apply to rash tid Mar 01, 2015 Active ELIMITE 5 % CREA Use as directed on label March 28, 2015 Active Immunizations Vaccine Date Status hepatitis [...] 74 mm Hg Jul 28, 2012 weight E&Marly - 3141-9 WEIGHT 123 lb Jul 28, [...] L 84 /min Aug 19, 2012 weight Juliana&Marly - 3141-9 WEIGHT 128 lb Aug 19, [...] 70 mm Hg Sep 04, 2012 weight Juliana&Marly - 3141-9 WEIGHT 131.6 lb Sep 04, [...] - 8462-4 BP DIASTOLIC 71 mm Hg March 28, 2015 weight E&M - 3141-9 WEIGHT 138 lb March 28, 2015 temperature E&M TEMPERATURE 98.1 deg f March 28, 2015 blood pressure, systolic - 8480-6 BP SYSTOLIC 110 mm Hg March 28, 2015 blood pressure, diastolic - 8462-4 BP DIASTOLIC 75 mm Hg March 28, 2015 pulse rate E&M - 8867-4 PULSE RATE 80 /min March 28, 2015 respiratory rate E&M - 9279-1 RESP RATE 18 /min Results Date Description Test Name Value Reference Interpretation Status Sep 21, sodium, serum SODIUM 136 mmol/L [phone] Sep 21, potassium, serum POTASSIUM 3.9 mmol/L [...] varicella zoster VARICELLA AB 2.50 null High 2014 antibody, IgG, serum
--- OUTSIDE RECORDS SUMMARY | 2019-04-23 02:40 | XMS REPORT | Summary of Care ---
:1995 Author Name ISAIAH YAO M.D. Address Unavailable Unavailable , Care Team Providers Name Role Phone MAXIMILIAN Johnston, ISAIAH Unavailable Unavailable Kelly Beltran M.A. Unavailable Unavailable RAMAN DOWELL, NICK CHAUHAN Unavailable Unavailable Abbey DOWELL, Simeon Unavailable Unavailable MAXIMILIAN DOWELL MI, ISAIAH Unavailable Unavailable Unavailable Unavailable Unavailable Functional Status Name Dates Details Functional status health issues are not documented Status: Name Dates Details Cognitive status health issues are not documented Status: Problems Name Dates Details Non-smoker (V49.89, Z78.9) Status: Active Autonomic neuropathy (337.9, G90.9) Status: Active Chronic pain (338.29, G89.29) Status: Active Headache (784.0, R51) Status: Active History of Lyme disease (V12.09, Z86.19) Status: Active White matter abnormality on MRI of brain (793.0, R93.0) Status: Active Fever (780.60, R50.9) Status: Active Joint pain (719.40, M25.50) Status: Active Night sweats (780.8, R61) Status: Active Accelerated essential hypertension (401.0, I10) Status: Active Essential (primary) hypertension (401.9, I10) Status: Active Dysautonomia (337.9, G90.1) Status: Active Medications Name Dates Details Gabapentin 100 MG Oral Capsule TAKE 1 CAPSULE BEDTIME.MAY INCREASE TO 3 CAPSULES AT BEDTIME TOLERATED. Quantity: 90 Refills: 11 ISAIAH YAO M.D. Start : 05-Jun-2017 Active Gabapentin 100 MG Oral Capsule TAKE 4 CAPSULE BEDTIME Quantity: 120 Refills: 11 ISAIAH YAO M.D. Start : 15-Aug-2017 Active Amoxicillin 500 MG Oral Tablet TAKE 1 TABLET 3 TIMES DAILY Quantity: 21 Refills: 0 ISAIAH YAO M.D. Start : 28-Aug-2017 Active Allergies and Adverse Reactions Name Dates Details No Known Drug Allergies (Allergy) Status: Active Past Medical History Name Dates Details History of transient cerebral ischemia (V12.54, Z86.73) Status: Resolved History of Vasovagal syncope (780.2, R55) Status: Resolved Procedures Procedure Dates Details Procedures not documented Immunization Name Dates Details Immunizations not documented Family History Name Dates Details Family history of hypertension (V17.49, Z82.49) Status: Active Family history of asthma (V17.5, Z82.5) Status: Active Family history of angina (V17.49, Z82.49) Status: Active Social History Name Dates Details Unknown if ever smoked Vital Signs Date Test Result Details No Known Vitals to report Results Date Description Value Details Results not documented Plan of Care Name Dates Details Planned Observations Planned Goals not documented Interventions Provided Medication ChangesAmoxicillin 500 MG Oral Tablet - Start Instructions Name Dates Details Instructions not documented Encounters Appointment; SIMEON ORDONEZ M.D. On: 04-Jul-2016 11:30 Encounter Diagnosis: Problem not documented Appointment; [employer] On: 25-Jul-2016 10:15 Encounter Diagnosis: Problem not documented Appointment; SIMEON ORDONEZ M.D. On: 29-Aug-2016 11:15 Encounter Diagnosis: Problem not documented Appointment; [facility] On: 20-Sep-2016 11:30 Encounter Diagnosis: Problem not documented Appointment; LAURA OLIVEROS On: 24-Sep-2016 15:30 Encounter Diagnosis: Problem not documented Appointment; SIMEON ORDONEZ M.D. On: 10-Oct-2016 11:00 Encounter Diagnosis: Problem not documented Appointment; LAURA OLIVEROS On: 23-Jan-2017 9:00 Encounter Diagnosis: Problem not documented Appointment; SIMEON ORDONEZ M.D. On: 23-Apr-2017 9:30 Encounter Diagnosis: Problem not documented Appointment; ISAIAH YAO M.D. On: 05-Jun-2017 8:30 Encounter Diagnosis: Problem not documented Appointment; SIMEON ORDONEZ M.D. On: 07-Aug-2017 9:30 Encounter Diagnosis: Problem not documented Appointment; ISAIAH YAO M.D. On: 15-Aug-2017 9:00 Encounter Diagnosis: Problem not documented
--- OUTSIDE RECORDS SUMMARY | 2019-04-23 02:40 | XMS REPORT ---
:1995 [facility] Address [address] [place] [address] Care Team Providers Name Role Phone DR YESSENIA JOYA Unavailable Unavailable DR CHANELLE GALLEGOS Unavailable Unavailable Problems This patient has no known problems. Allergies, Adverse Reactions, Alerts This patient has no known allergies or adverse reactions. Medications This patient has no known medications. Encounters Start End Encounter Admission Attending Care Care Encounter Date/Time Date/Time Type Type Clinicians Facility Department ID 2018-04-16 2018-04-16 Outpatient E YESSENIA JOYA [facility] [id number] 13:32:00 14:17:00 2016-05-30 2016-06-01 Outpatient E ROSY [facility] [id number] 00:59:00 11:15:00 CHANELLE Results Test Description Test Time Test Comments Text Results Atomic Results Result Comments XR HAND LEFT COMPLETE 3 2018-04-16 14:17:15 Left hand, 3 viewsLocation code: VIEWS *OW* [id number] HISTORY: [id number]: Traumatic injuryCOMMENTS: AP, lateral, and oblique views of the left hand demonstrate no acutefracture or malalignment. The soft tissues are unremarkable.IMPRESSION: No acute radiographic abnormality.
[2019-04-23] MEDS ORDERED: MEPERIDINE HCL 25 MG/0.5 ML ONE (03:15)
[2019-04-23] MEDS ORDERED: ONDANSETRON 4 MG/2 ML VIAL ONE (03:16)
[2019-04-23] MEDS ORDERED: ACETAMINOPHEN 325 MG TABLET ONE (03:16)
[2019-04-23] MEDS ORDERED: NA CHLORIDE 0.9% 1,000 ML ONE (03:16)
[2019-04-23 03:22] LABS: Absolute Lymphocytes (CBC) 0.3 K/uL (0.7-4.9); Absolute Monocytes 0.4 K/uL (0.1-1.3); Basophils % 0.3 % (0-1.3); Eosinophils % 0.1 % (0-4.4); Hematocrit 44.1 % (39.6-49.0); Lymphocytes % 4.1 % (15.3-44.8); MPV 8.6 fL (7.6-11.3); Monocytes % 4.7 % (3.3-12.3); RBC Red Blood Cell Count 5.22 M/uL (4.33-5.43)
[2019-04-23 03:36] LABS: ALT/SGPT 20 U/L (12-78); AST/SGOT 16 U/L (15-37); Albumin 4.2 g/dL (3.4-5.0); Alkaline Phosphatase 65 U/L (45-117); BUN Blood Urea Nitrogen 15 mg/dL (7-18); Bicarbonate 24 mmol/L (21-32); Bilirubin Direct 0.2 mg/dL (0-0.2); Bilirubin Total 0.8 mg/dL (0.2-1.0); Glucose Level 114 mg/dL (74-106); Lipase 68 U/L (73-393); Potassium 3.8 mmol/L (3.5-5.1); Protein, Total 8.1 g/dL (6.4-8.2); Sodium Level 136 mmol/L (136-145); Troponin (Emerg Dept Use Only) < 0.02 ng/mL (0.0-0.045)
[2019-04-23 04:03] LABS: Blood Morphology Comment NOT SEEN (NOT SEEN); Platelet Estimate ADEQ; Urine White Blood Cell Casts OK
--- NOTE | 2019-04-23 05:15 | ER ---
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 Transition of care: patient was not received from another setting of care. Onset of symptoms was April 22, 2019 at 21:00. Risk Assessment: Do you want to hurt yourself or someone else? Patient reports no desire to harm self or others. Initial Sepsis Screen: Does the patient meet any 2 criteria? No. Patient's initial sepsis screen is negative. Does the patient have a suspected source of infection? No. Patient's initial sepsis screen is negative. Care prior to arrival: None. 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 - Social history:: Smoking status: Patient/guardian denies using tobacco. - Ebola Screening: : No symptoms or risks identified at this time. - Family history:: not pertinent. - Hospitalizations: : No recent hospitalization is reported. Screenin:50 Abuse screen: Denies threats or abuse. Denies injuries from another. Nutritional lp1 screening: No deficits noted. Tuberculosis screening: No symptoms or risk factors identified. Fall Risk None identified. Assessment: 03:00 General: Appears in no apparent distress. uncomfortable, Behavior is cooperative, tl2 appropriate for age, anxious. Pain: Complains of pain in mid-sternal area Pain radiates to left arm Pain began 30 min ago. Neuro: Level of Consciousness is awake, alert, obeys commands, Oriented to person, place, time, situation. Cardiovascular: Reports chest pain, nausea, palpitations, shortness of breath, vomiting, Chest pain is described as diffuse, quality is sharp, radiates to left arm(s). Respiratory: Reports shortness of breath Airway is patent Respiratory effort is even, unlabored, Respiratory pattern is regular, symmetrical. GI: Reports nausea, vomiting. : No signs and/or symptoms were reported regarding the genitourinary system. Derm: Skin is pink, warm \T\ dry. 04:09 Reassessment: Patient appears in no apparent distress at this time. Patient and/or tl2 family updated on plan of care and expected duration. Pain level reassessed. Patient is alert, oriented x 3, equal unlabored respirations, skin warm/dry/pink. pt returned from CT, no complaints at this time. 05:20 Reassessment: Patient appears in no apparent distress at this time. Patient and/or tl2 family updated on plan of care and expected duration. Pain level reassessed. Patient is alert, oriented x 3, equal unlabored respirations, skin warm/dry/pink. pt verbalized understanding of discharge instructions, need for follow up and prescription usage Patient states feeling better. Vital Signs: 02:49 BP 135 / 90; Pulse 116; Resp 18; Temp 100.1(O); Pulse Ox 100% on R/A; Weight 72.57 kg; lp1 Height 5 ft. 9 in. (175.26 cm); Pain 9/10; 03:00 BP 133 / 89; Pulse 90; Resp 12; Pulse Ox 100% on R/A; tl2 04:09 BP 121 / 61; Pulse 95; Resp 16; Pulse Ox 100% on R/A; tl2 04:53 BP 97 / 56; Pulse 85; Resp 14; Temp 98.8(O); Pulse Ox 99% on R/A; tl2 02:49 Body Mass Index 23.63 (72.57 kg, 175.26 cm) lp1 ED Course: 02:33 Patient arrived in ED. am2 02:37 Erich Martinez MD is Attending Physician. rn 02:49 Triage completed. lp1 02:49 Lakshmi Hernandez RN is Primary Nurse. tl2 02:49 Arm band placed on right wrist. lp1 02:50 Patient has correct armband on for positive identification. Placed in gown. Bed in low lp1 position. youth nutritional monitor on. Pulse ox on. NIBP on. 02:50 Patient maintains SpO2 saturation greater than 95% on room air. lp1 02:50 EKG done, by ED staff, reviewed by Erich Martinez MD. tl2 02:55 Inserted saline lock: 20 gauge in right antecubital area, using aseptic technique. tl2 Blood collected. placed by DAVE Cline. 02:55 Initial lab(s) drawn, by ED staff, sent to lab. First set of blood cultures drawn by ED tl2 staff. 02:59 X-ray completed. Portable x-ray completed in exam room. Patient tolerated procedure kw well. 03:00 XRAY Chest (1 view) In Process Unspecified. EDMS 03:03 Radiology exam delayed due to lab results not completed at this time. (BUN/Creatinine). eh 03:05 Flu Sent. tl2 04:06 CT completed. Patient tolerated procedure well. Patient moved to CT via stretcher. Patient moved back from CT. 04:19 CT Chest For PE Angio In Process Unspecified. EDMS 04:19 CT Abd/Pelvis - IV Contrast Only In Process Unspecified. EDMS 04:53 No provider procedures requiring assistance completed. IV discontinued, intact, tl2 bleeding controlled, No redness/swelling at site. Pressure dressing applied. Administered Medications: 03:05 Drug: Zofran 4 mg Route: IVP; Site: right antecubital; tl2 04:00 Follow up: Response: No adverse reaction; Nausea is decreased tl2 03:05 Drug: Demerol 25 mg Route: IVP; Site: right antecubital; tl2 04:00 Follow up: Response: No adverse reaction; Pain is decreased tl2 03:05 Drug: Tylenol 650 mg Route: PO; tl2 05:21 Follow up: Response: No adverse reaction; Temperature is decreased tl2 03:05 Drug: NS 0.9% 1000 ml Route: IV; Rate: 1000 ml; Site: right antecubital; tl2 04:30 Follow up: IV Status: Completed infusion; IV Intake: 1000ml tl2 Intake: 04:30 IV: 1000ml; Total: 1000ml. tl2 Outcome: 04:53 Discharged to home ambulatory, with family. tl2 04:53 Condition: stable 04:53 Discharge instructions given to patient, family, Instructed on discharge instructions, follow up and referral plans. medication usage, Demonstrated understanding of instructions, follow-up care, medications, Prescriptions given X 1. 05:14 Discharge ordered by . rn 05:22 Patient left the ED. tl2 Signatures: Dispatcher [employer] Giovanny Correa Roman, MD MD rn Whitley, Kimberlee kw Pena, Laura, RN RN lp1 Lakshmi Hernandez RN RN tl2 Lucy Gomes am2 Corrections: (The following items were deleted from the chart) 05:20 04:53 BP 97 / 56; Pulse 85bpm; Resp 14bpm; Pulse Ox 99% RA; tl2 tl2
--- NOTE | 2019-04-23 05:15 | EDPHYS ---
Physician Documentation [facility] Name: Iain Felix Age: 23 yrs Sex: Male : 1995 Arrival Date: 04/23/2019 Time: 02:33 Bed 4 Private MD: ED Physician Erich Martinez HPI: 04/23 02:50 This 23 yrs old Male presents to ER via Wheelchair with complaints of Chest rn Pain, Fever. 02:50 The patient or guardian reports chest pain that is located primarily in the anterior rn chest wall. The pain does not radiate. Associated signs and symptoms: Pertinent positives: abdominal pain, lightheadedness, nausea, vomiting, Pertinent negatives: cough, diaphoresis, lower extremity swelling, recent travel, syncope. The chest pain is described as sharp, stabbing. Duration: The patient or guardian reports multiple episodes, that are intermittent. Modifying factors: The symptoms are alleviated by nothing. the symptoms are aggravated by movement. Severity of pain: At its worst the pain was moderate in the emergency department the pain has improved. The patient has experienced similar episodes in the past. Reports last night began with subjective fever, abd pain, vomiting and diarrhea. woke up from sep with central chest pain, sharp, no radiation, assoc with lightheadedness, no syncope, denies cough. Reports multiple medical problems in past including autonomic dysfunction, appendectomy, DVT, "mild heart attack", TIA. . 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 - Social history:: Smoking status: Patient/guardian denies using tobacco. - Ebola Screening: : No symptoms or risks identified at this time. - Family history:: not pertinent. - Hospitalizations: : No recent hospitalization is reported. ROS: 02:50 Constitutional: + fever Eyes: Negative for injury, pain, redness, and discharge, ENT: rn Negative for injury, pain, and discharge, Neck: Negative for injury, pain, and swelling, Cardiovascular: Negative for edema, Respiratory: Negative for cough, wheezing Abdomen/GI: Negative for constipation MS/Extremity: Negative for injury and deformity, Skin: Negative for injury, rash, and discoloration, Neuro: Negative for headache, numbness, tingling, and seizure. Exam: 02:50 Constitutional: This is a well developed, well nourished patient who is awake, alert, rn appears anxious Head/Face: Normocephalic, atraumatic. Eyes: Pupils equal round and reactive to light, extra-ocular motions intact. Lids and lashes normal. Conjunctiva and sclera are non-icteric and not injected. Cornea within normal limits. Periorbital areas with no swelling, redness, or edema. ENT: dry MM Neck: Trachea midline, no thyromegaly or masses palpated, and no cervical lymphadenopathy. Supple, full range of motion without nuchal rigidity, or vertebral point tenderness. No Meningismus. Cardiovascular: tachycardic, regular, no murmur Respiratory: + mild hyperventilation with clear bilateral breath sounds Abdomen/GI: Soft, mild periumbilical tenderness, no rebound/guarding, no peritoneal signs Skin: Warm, dry MS/ Extremity: Pulses equal, no cyanosis. Neurovascular intact. Full, normal range of motion. Equal circumference. Neuro: Awake and alert, GCS 15, oriented to person, place, time, and situation. Cranial nerves II-XII grossly intact. Motor strength 5/5 in all extremities. Sensory grossly intact. Cerebellar exam normal. Vital Signs: 02:49 BP 135 / 90; Pulse 116; Resp 18; Temp 100.1(O); Pulse Ox 100% on R/A; Weight 72.57 kg; lp1 Height 5 ft. 9 in. (175.26 cm); Pain 9/10; 03:00 BP 133 / 89; Pulse 90; Resp 12; Pulse Ox 100% on R/A; tl2 04:09 BP 121 / 61; Pulse 95; Resp 16; Pulse Ox 100% on R/A; tl2 04:53 BP 97 / 56; Pulse 85; Resp 14; Temp 98.8(O); Pulse Ox 99% on R/A; tl2 02:49 Body Mass Index 23.63 (72.57 kg, 175.26 cm) lp1 MDM: 02:37 Patient medically screened. rn 05:12 Differential diagnosis: acute pericarditis, gastritis, gastroesophageal reflux disease rn (GERD), pericarditis, pleurisy, pneumonia, gastroenteritis, colitis. Data reviewed: vital signs, nurses notes, lab test result(s), EKG, radiologic studies, CT scan, plain films, and as a result, I will discharge patient. Counseling: I had a detailed discussion with the patient and/or guardian regarding: the historical points, exam findings, and any diagnostic results supporting the discharge/admit diagnosis, lab results, radiology results, the need for outpatient follow up, to return to the emergency department if symptoms worsen or persist or if there are any questions or concerns that arise at home. Response to treatment: the patient's symptoms have markedly improved after treatment, and as a result, I will discharge patient. Special discussion: I discussed with the patient/guardian in detail that at this point there is no indication for admission to the hospital. It is understood, however, that if the symptoms persist or worsen the patient needs to return immediately for re-evaluation. Based on the history and exam findings, there is no indication for further emergent testing or inpatient evaluation. I discussed with the patient/guardian the need to see the primary care provider for further evaluation of the symptoms. ED course: Patient with improvement of symptoms after fluids, ECG without ischemia, labs unremarkable, ct chest for PE negative and CT abdomen negative for acute findings as well. Most likely viral syndrome, but return precautions given and understood. Will prescribe zofran prn for nausea and vomiting. . 04/23 02:49 Order name: CBC with Diff rn 04/23 02:49 Order name: Basic Metabolic Panel rn 04/23 02:49 Order name: Blood Culture Adult (2) rn 04/23 02:49 Order name: Procalcitonin rn 04/23 02:49 Order name: Troponin (emerg Dept Use Only) rn 04/23 02:49 Order name: Creatinine for Radiology; Complete Time: 03:39 rn 04/23 02:49 Order name: Hepatic Function; Complete Time: 03:39 rn 04/23 02:49 Order name: Lipase; Complete Time: 03:39 rn 04/23 02:49 Order name: Flu; Complete Time: 03:39 rn 04/23 02:50 Order name: CBC with Automated Diff; Complete Time: 04:18 EDMS 04/23 02:50 Order name: Basic Metabolic Panel; Complete Time: 03:39 EDMS 04/23 02:50 Order name: Blood Culture EDMS 04/23 02:50 Order name: Procalcitonin; Complete Time: 04:18 EDMS 04/23 02:50 Order name: Troponin (Emerg Dept Use Only); Complete Time: 03:39 EDMS 04/23 02:49 Order name: XRAY Chest (1 view) rn 04/23 02:49 Order name: IV Start; Complete Time: 02:56 rn 04/23 02:49 Order name: EKG; Complete Time: 02:51 rn 04/23 02:49 Order name: EKG - Nurse/Tech; Complete Time: 02:50 rn 04/23 02:49 Order name: CT Chest For PE Angio rn 04/23 02:49 Order name: CT Abd/Pelvis - IV Contrast Only rn 04/23 02:49 Order name: Labs collected and sent; Complete Time: 02:56 rn 04/23 04:04 Order name: CBC Smear Scan; Complete Time: 04:18 EDMS Administered Medications: 03:05 Drug: Zofran 4 mg Route: IVP; Site: right antecubital; tl2 04:00 Follow up: Response: No adverse reaction; Nausea is decreased tl2 03:05 Drug: Demerol 25 mg Route: IVP; Site: right antecubital; tl2 04:00 Follow up: Response: No adverse reaction; Pain is decreased tl2 03:05 Drug: Tylenol 650 mg Route: PO; tl2 05:21 Follow up: Response: No adverse reaction; Temperature is decreased tl2 03:05 Drug: NS 0.9% 1000 ml Route: IV; Rate: 1000 ml; Site: right antecubital; tl2 04:30 Follow up: IV Status: Completed infusion; IV Intake: 1000ml tl2 Disposition: 04/23/19 05:14 Discharged to Home. Impression: Fever of other and unknown origin, Chest pain, unspecified, Vomiting. - Condition is Stable. - Discharge Instructions: Nonspecific Chest Pain, Fever, Adult, Pain Without a Known Cause. - Prescriptions for Zofran ODT 4 mg Oral tablet,disintegrating - place 1 tablet by TRANSLINGUAL route every 8 hours As needed; 20 tablet. - Medication Reconciliation Form, Thank You Letter, Antibiotic Education, Prescription Opioid Use form. - Follow up: Private Physician; When: As needed; Reason: Recheck today's complaints, Re-evaluation by your physician. - Problem is new. - Symptoms have improved. Signatures: Dispatcher [employer] EDMS Erich Martinez MD MD rn Pena, Laura, RN RN lp1 Lakshmi Hernandez RN RN tl2 Corrections: (The following items were deleted from the chart) 02:54 02:50 Constitutional: This is a well developed, well nourished patient who is awake, rn alert, appears anxious Head/Face: Normocephalic, atraumatic. Eyes: Pupils equal round and reactive to light, extra-ocular motions intact. Lids and lashes normal. Conjunctiva and sclera are non-icteric and not injected. Cornea within normal limits. Periorbital areas with no swelling, redness, or edema. ENT: dry MM Cardiovascular: tachycardic, regular, no murmur Respiratory: + mild hyperventilation with clear bilateral breath sounds Abdomen/GI: Soft, mild periumbilical tenderness, no rebound/guarding, no peritoneal signs MS/ Extremity: Pulses equal, no cyanosis. Neurovascular intact. Full, normal range of motion. Equal circumference. Neuro: Awake and alert, GCS 15, oriented to person, place, time, and situation. Cranial nerves II-XII grossly intact. Motor strength 5/5 in all extremities. Sensory grossly intact. Cerebellar exam normal. rn 05:22 05:14 04/23/2019 05:14 Discharged to Home. Impression: Fever of other and unknown tl2 origin; Chest pain, unspecified; Vomiting. Condition is Stable. Forms are Medication Reconciliation Form, Thank You Letter, Antibiotic Education, Prescription Opioid Use. Follow up: Private Physician; When: As needed; Reason: Recheck today's complaints, Re-evaluation by your physician. Problem is new. Symptoms have improved. rn
--- NOTE | 2019-04-23 06:53 | EKG ---
Test Date: 2019-04-23 Test Time: 02:47:06 Ring Maker: YAMILA MEASUREMENT RESULTS: Intervals: Rate: 98 RI: 132 QRSD: 88 QT: 318 QTc: 405 [place]: P: 68 RI: 132 QRS: 82 T: 46 INTERPRETIVE STATEMENTS: Normal sinus rhythm Possible Left atrial enlargement RSR' or QR pattern in V1 suggests right ventricular conduction delay Borderline ECG No previous ECG available for comparison Electronically Signed On 04-23-19 06:52:36 CDT by Cheo Hickey
--- NOTE | 2019-04-23 07:42 | RAD REPORT ---
EXAM DESCRIPTION: RAD - Chest Single View - 04/23/2019 3:01 am CLINICAL HISTORY: Chest pain COMPARISON: None. TECHNIQUE: AP portable chest image was obtained . FINDINGS: Lungs are clear. Heart and vasculature are normal. No measurable pleural effusion and no p neumothorax. No acute bony abnormality seen. No acute aortic findings suspected. IMPRESSION: No acute cardiopulmonary process.
--- NOTE | 2019-04-23 10:34 | RAD REPORT ---
EXAM DESCRIPTION: CT - Abdomen Pelvis W Contrast - 04/23/2019 6:54 am CLINICAL HISTORY: Abd pain;Nausea / vomiting. Chest pain. Epigastric pain. COMPARISON: None Available. TECHNIQUE: CTA of the chest obtained following the uncomplicated intravenous administration of iodin ated contrast. CT of the abdomen and pelvis obtained in the portal venous phase. 3-D/MIP reformatted images of the chest available for evaluation. DLP: 937 mGycm FINDINGS: Chest: Pulmonary arteries: Contrast bolus is adequate.No filling defects identified in the pulmonary arterie s to suggest pulmonary embolus. Respiratory motion artifact. Thyroid: No abnormalities of the visualized thyroid. Great Vessels: Great vessels have normal anatomic configuration. Thoracic Aorta: No abnormalities of the thoracic aorta identified. Heart: No cardiomegaly, significant pericardial effusion, or coronary artery atherosclerosis Lymph Nodes: No enlarged mediastinal lymph nodes identified. Esophagus: No abnormalities of the esophagus identified. Other: No additional findings. Lungs: No airspace opacities identified. Pleura: No pleural effusion or pneumothorax. Trachea/Airways: No abnormalities of the visualized trachea or airways. Abdomen: Liver: The liver has normal size and density. No intrahepatic mass or biliary dilatation. Gallbladder: No calcified gallstones. Spleen, Pancreas, and Adrenal Glands: The spleen, pancreas, and adrenal glands are unremarkable. Kidneys: The kidneys have normal size and contour without evidence of solid mass or hydronephrosis. Vasculature: The aorta and IVC have normal caliber and position. Retroaortic left renal vein. The por ai vein is patent. The proximal visceral and renal arteries are patent. Stomach: The stomach and duodenum have normal course. Other: No free intraperitoneal air. No free fluid or lymphadenopathy. Pelvis: Bladder: Urinary bladder is unremarkable. Bowel: No dilated loops of large or small bowel. Appendix: Prior appendectomy. Pelvis: Prostate is not enlarged. Bones: No destructive bone lesions identified. IMPRESSION: 1. No pulmonary embolus. 2. No acute inflammatory or obstructive process identified in the abdomen/pelvis. This exam was performed according to our departmental dose-optimization program, which includes autom ated exposure control, adjustment of the mA and/or kV according to patient size and/or use of iterati ve reconstruction technique. Electronically signed by: Michael Paula 04/23/2019 4:42 AM CDT Due to temporary technical issues with the PACS/Fluency reporting system, reports are being signed by the in house radiologist as a courtesy to ensure prompt reporting. The interpreting radiologist is f ully responsible for the content of the report.
== END 2019-04-23 05:22 | disposition home or self-care (01) ==
LOC: ER 02:32
DX: R07.9 Chest pain, unspecified (principal); R50.9 Fever, unspecified; R11.10 Vomiting, unspecified
CPT/HCPCS: 36415; 71045; 71275; 74177; 80048; 80076; 83690; 84145; 84484; 85025; 87040; 87804; 93005; 96361; 96374; 96375; 99285; J2175; J2405; J7030; Q9967

== ENCOUNTER 2019-07-21 19:14 | Emergency (ER) | payer BC ==
--- OUTSIDE RECORDS SUMMARY | 2019-07-21 19:16 | XMS REPORT | Clinical Summary ---
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
--- OUTSIDE RECORDS SUMMARY | 2019-07-21 19:17 | XMS REPORT | Continuity of Care Document ---
:1995 Author Organization [employer] Care Team Providers Name Role Phone [employer] Unavailable Unavailable Problems Problem Status Onset Classification Date Comments Source Date Reported SCABIES Active 03/28/20 Condition 03/28/2015 [facility] RASH, SKIN Active 03/01/20 Condition 03/28/2015 [facility] SINUSITIS, ACUTE Active 09/21/20 Condition 03/28/2015 [facility] BACK PAIN Active 09/21/20 Condition 03/28/2015 [facility] Medical Group ROUTINE GENERAL Active 12/11/19 Condition 03/28/2015 [facility] 14 Medical CARE FACL Group SVT Active 09/23/20 Condition 03/28/2015 [facility] CHEST PAIN Active 09/23/20 Condition 03/28/2015 [facility] Medical Group SYNCOPE Active 07/28/20 Condition 03/28/2015 [facility] LOSS OF WEIGHT Active 07/28/20 Condition 03/28/2015 [facility] MALAISE AND FATIGUE Active 07/25/20 Condition 03/28/2015 [facility] FAMILY HISTORY OF Active Condition [...] Medical Active Group Allergies, Adverse Reactions, Alerts No Known Medication Allergies Immunizations Immunization Date Given Site Status Last [...] Range Chemistry SODIUM 136 135 - 143 2013 [facility] Chemistry POTASSIUM 3.9 3.3 - 5.0 2013 [facility] Chemistry ALBUMIN 3.9 3.5 - 5.0 2013 [facility] Chemistry CALCIUM 9.4 8.6 - 9.8 2013 [facility] Chemistry CREATININE 1.06 0.46 - 1.20 2013 [facility] Chemistry BUN 13 10 - 22 2013 [facility] Chemistry ALK PHOS 59 32 - 96 2013 [facility] Chemistry SGOT (AST) 20 13 - 38 2013 [facility] Chemistry SGPT (ALT) 13 8 - 36 2013 [facility] Chemistry CPK 60 18 - 164 2013 [facility] Serology VARICELLA AB 2.50 2013 [facility] Serology VARICELLA AB 2.50 2013 [facility] Pathology Reports No Data Provided for This Section Diagnostic Reports No Data Provided for This Section Consultation Notes No Data Provided for This Section Discharge Summaries No Data Provided for This Section History and Physicals No Data Provided for This Section Vital Signs Vital Sign Value Date Comments [...] 16 03/01/2015 [facility] Weight 130 09/21/2014 [facility] Temperature Oral (F) 98.8 F 09/21/2014 [facility] Systolic (mm Hg) 118 09/21/2014 [facility] Diastolic (mm Hg) 81 09/21/2014 [facility] Heart Rate 92 09/21/2014 [facility] Weight 130 06/03/2014 [facility] Systolic (mm Hg) 108 06/03/2014 [facility] Diastolic (mm Hg) 70 06/03/2014 [facility] Temperature Oral (F) 97.6 F 06/03/2014 [facility] Heart Rate 71 06/03/2014 [facility] Respitory Rate 10 06/03/2014 [facility] Weight 133 12/11/2013 [facility] Temperature Oral (F) 97.7 F 12/11/2013 [facility] Systolic (mm Hg) 120 12/11/2013 [facility] Diastolic (mm Hg) 68 12/11/2013 [facility] Heart Rate 76 12/11/2013 [facility] Weight 127.8 04/23/2013 [facility] Systolic (mm Hg) 90 04/23/2013 [facility] Diastolic (mm Hg) 68 04/23/2013 [facility] Heart Rate 72 04/23/2013 [facility] Heart Rate 68 10/23/2012 [facility] Systolic (mm Hg) 90 10/23/2012 [facility] Diastolic (mm Hg) 50 10/23/2012 [facility] Weight 131.8 09/23/2012 [facility] Heart Rate 84 09/23/2012 [facility] Systolic (mm Hg) 98 09/23/2012 [facility] Diastolic (mm Hg) 70 09/23/2012 [facility] Weight 131.6 09/04/2012 [facility] Temperature Oral (F) 98.5 F 09/04/2012 [facility] Group Heart Rate distal pulses 2+ 09/04/2012 [facility] Systolic (mm Hg) 90 09/04/2012 [facility] Diastolic (mm Hg) 60 09/04/2012 [facility] Weight 128 08/19/2012 Medical Group Heart Rate 72 08/19/2012 [facility] Systolic (mm Hg) 105 08/19/2012 Medical Group Diastolic (mm Hg) 70 08/19/2012 [...] Type Number For Provider Date Date Visit [facility] Lab Report [id number] Majaz 06/03 06/03 [place] Medical 510 MD Rambo /2013 Medical [facility] Office [id number] Majaz 06/03 06/03 [place] Medical Visit 010 MD Rambo /2013 Medical [facility] Lab Report [id number] Horace 09/21 09/21 [place] Medical 810 LISA Hernández /2013 Medical [facility] Lab Report [id number] Horace 11/14 11/14 [address] LISA Hernández /2014 Medical Medical [facility] Office [id number] [facility] 03/01 03/01 [place] Medical Visit 210 LISA Hernández /2014 Medical [facility] Office [id number] Majid 03/24 03/24 [place] Medical Visit 830 MD Rambo /2014 Medical [facility] Cardiology [facility] Office [id number] Majaz 03/28 03/28 [place] Medical Visit 830 MD Rambo /2014 [facility] Procedures Procedure Code Date Perfomer Comments Source echocardiogram, [address]695 08/12/2012 Complete Medical complete Group Assessment and Plan No Data Provided for This Section Plan of Care No Data Provided for This Section Social History No Data Provided for This Section Family History No Data Provided for This Section Advance Directives No Data Provided for This Section Functional Status No Data Provided for This Section
--- OUTSIDE RECORDS SUMMARY | 2019-07-21 19:17 | XMS REPORT | Clinical Summary ---
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
--- OUTSIDE RECORDS SUMMARY | 2019-07-21 19:18 | XMS REPORT | Continuity of Care Document ---
:1995 Author Organization [facility] Care Team Providers Name Role Phone [...] Location Date Office Visit Vickie Ricks MD [facility] Jun 03, 2014 Practice Problems Problem Effective [...]
--- OUTSIDE RECORDS SUMMARY | 2019-07-21 19:18 | XMS REPORT | Continuity of Care Document ---
:[address] [facility] Care Team Providers Name [...] Location Date Lab Report Vickie Ricks MD [facility] Jun 03, 2014 Problems Problem Effective Dates [...]
--- OUTSIDE RECORDS SUMMARY | 2019-07-21 19:18 | XMS REPORT | Continuity of Care Document ---
:1995 Author Organization [facility] Care Team Providers Name Role Phone LISA [...] Performer Location Date Lab Report LISA Mitchell [facility] Nov 14, 2014 Problems Problem Effective Dates [...] Sep 21, sodium, serum SODIUM 136 mmol/L [phone] Sep 21, potassium, serum POTASSIUM 3.9 mmol/L [...]
--- OUTSIDE RECORDS SUMMARY | 2019-07-21 19:18 | XMS REPORT | Continuity of Care Document ---
[...] Performer Location Date Lab Report LISA Mitchell [facility] Sep 21, 2014 [...] Sep 21, sodium, serum SODIUM 136 mmol/L [phone] Sep 21, potassium, serum POTASSIUM 3.9 mmol/L [...]
--- OUTSIDE RECORDS SUMMARY | 2019-07-21 19:19 | XMS REPORT | Continuity of Care Document ---
:1995 Author Organization [facility] Care Team Providers Name Role [...] Location Date Office Visit Vickie Ricks MD [facility] Cardiology March Problems Problem Effective Dates Problem [...] Sep 21, sodium, serum SODIUM 136 mmol/L [phone] Sep 21, potassium, serum POTASSIUM 3.9 mmol/L [...]
--- OUTSIDE RECORDS SUMMARY | 2019-07-21 19:19 | XMS REPORT | Continuity of Care Document ---
:1995 Author Organization [facility] Care Team Providers Name Role Phone [...] Performer Location Date Office Visit LISA Mitchell [facility] Mar 01, 2015 Practice Problems Problem Effective [...] Sep 21, sodium, serum SODIUM 136 mmol/L [phone] Sep 21, potassium, serum POTASSIUM 3.9 mmol/L [...]
--- OUTSIDE RECORDS SUMMARY | 2019-07-21 19:19 | XMS REPORT | Continuity of Care Document ---
:1995 Author Organization [facility] Care Team Providers Name Role [...] Location Date Office Visit Vickie Ricks MD [facility] March 28, 2015 Practice Problems Problem Effective [...] Sep 21, sodium, serum SODIUM 136 mmol/L [phone] Sep 21, potassium, serum POTASSIUM 3.9 mmol/L [...]
--- OUTSIDE RECORDS SUMMARY | 2019-07-21 19:19 | XMS REPORT | Continuity of Care Document ---
:1995 Author Organization [facility] Care Team Providers Name Role Phone LISA [...] Performer Location Date Lab Report LISA Mitchell [facility] Nov 14, 2014 Problems Problem Effective Dates [...] Sep 21, sodium, serum SODIUM 136 mmol/L [phone] Sep 21, potassium, serum POTASSIUM 3.9 mmol/L [...]
--- OUTSIDE RECORDS SUMMARY | 2019-07-21 19:20 | XMS REPORT ---
:1995 Author Organization [facility] Address [address] [place] [address] Care Team Providers Name Role Phone DR [...] ID 2018-04-16 2018-04-16 Outpatient E YESSENIA JO[facility] [id number] 13:32:00 14:17:00 2016-05-30 2016-06-01 Outpatient E [facility] [id number] 00:59:00 11:15:00 CHANELLE Results Test Description Test Time Test Comments Text Results Atomic Results Result Comments XR HAND LEFT COMPLETE 3 2018-04-16 14:17:15 Left hand, 3 viewsLocation code: VIEWS *OW* [id number] HISTORY: [id number]: Traumatic injuryCOMMENTS: AP, lateral, and oblique views of the left hand demonstrate no acutefracture or malalignment. The soft tissues are unremarkable.IMPRESSION: No acute radiographic abnormality.
[2019-07-21] MEDS ORDERED: IBUPROFEN 400 MG TAB ONE (19:54)
[2019-07-21] MEDS ORDERED: IBUPROFEN 200 MG TAB PO ONE (19:54)
[2019-07-21] MEDS ORDERED: NA CHLORIDE 0.9% 1,000 ML ONE (20:26)
[2019-07-21 20:44] LABS: Absolute Lymphocytes (CBC) 0.7 K/uL (0.7-4.9); Basophils % 0.7 % (0-1.3); Hematocrit 44.7 % (39.6-49.0); Lymphocytes % 17.9 % (15.3-44.8); MPV 8.6 fL (7.6-11.3); RBC Red Blood Cell Count 5.25 M/uL (4.33-5.43)
[2019-07-21] MEDS ORDERED: CEFTRIAXONE 1000 MG/VIAL ONE (21:00)
[2019-07-21] MEDS ORDERED: NA CHLORIDE 0.9% 100 ML IV ONE (21:01)
[2019-07-21 21:10] LABS: Albumin 4.6 g/dL (3.4-5.0); Bilirubin Total 0.5 mg/dL (0.2-1.0); Potassium 3.7 mmol/L (3.5-5.1); Protein, Total 8.7 g/dL (6.4-8.2)
[2019-07-21] MEDS ORDERED: LIDOCAINE 1% MPF 30 ML VIAL ONE (22:12)
[2019-07-21] MEDS ORDERED: ONDANSETRON 4 MG/2 ML VIAL ONE (22:54)
[2019-07-21] MEDS ORDERED: MORPHINE 2 MG/ML SYR ONE (22:54)
[2019-07-21] MEDS ORDERED: FENTANYL CITR 100 MCG/2 ML ONE (23:32)
[2019-07-21 23:56] LABS: Appearance CLEAR (CLEAR); Body Fluid Source CSF; Color of fluid Colorless (COLORLESS); Fluid Total Volume 3 ml
[2019-07-21 23:57] LABS: CSF Glucose 54 mg/dL (40-70)
[2019-07-22 00:03] LABS: Body Fluid WBC 7 /mm^3
[2019-07-22 00:21] LABS: Appearance CLEAR (CLEAR); Body Fluid Source CSF; Body Fluid WBC 4 /mm^3; Color of fluid Colorless (COLORLESS)
--- NOTE | 2019-07-22 01:06 | ER ---
Nurse's Notes [facility] Name: Iain Felix Age: 24 yrs Sex: Male : 1995 Arrival Date: 07/21/2019 Time: 19:17 Bed 18 Private MD: Diagnosis: Headache;viral syndrome Presentation: 07/21 19:32 Presenting complaint: Patient states: "I was bit by a a tick. I have three spots that jd3 are giving me problems, but my back is the worse and the bite looks the most inflamed and hurts. I am also having a very bad headache.". Transition of care: patient was not received from another setting of care. Onset of symptoms was July 21, 2019. Risk Assessment: Do you want to hurt yourself or someone else? Patient reports no desire to harm self or others. Initial Sepsis Screen: Does the patient meet any 2 criteria? Systolic BP < 90 mmHg. No. Patient's initial sepsis screen is negative. Does the patient have a suspected source of infection? No. Patient's initial sepsis screen is negative. Care prior to arrival: None. 19:32 Method Of Arrival: Ambulatory j 19:32 Acuity: ZULEMA 3 jd3 Triage Assessment: 19:41 Headache History: Denies prior headaches. Pain: Pain currently is 10 out of 10 on a jd3 pain scale. Pain began gradually, Also complains of nausea. 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 - Social history:: Smoking status: Patient/guardian denies using tobacco. - Ebola Screening: : Patient negative for fever greater than or equal to 101.5 degrees Fahrenheit, and additional compatible Ebola Virus Disease symptoms. Screenin:42 Abuse screen: Denies threats or abuse. Nutritional screening: No deficits noted. jd3 Tuberculosis screening: No symptoms or risk factors identified. Fall Risk Ambulatory Aid- None/Bed Rest/Nurse Assist (0 pts). Gait- Normal/Bed Rest/Wheelchair (0 pts) Mental Status- Oriented to own ability (0 pts). Total Fletcher Fall Scale indicates No Risk (0-24 pts). Assessment: 19:37 General: Appears in no apparent distress. uncomfortable, Behavior is calm, cooperative, jd3 appropriate for age. Pain: Complains of pain in head and back Quality of pain is described as aching, pressure, sharp, Is continuous. Neuro: Level of Consciousness is awake, alert, obeys commands, Oriented to person, place, time, situation. Cardiovascular: Denies chest pain, shortness of breath, Capillary refill < 3 seconds Patient's skin is warm and dry. Respiratory: Airway is patent Respiratory effort is even, unlabored, Respiratory pattern is regular, symmetrical, Denies cough, shortness of breath at rest. GI: Abdomen is round non-distended, Reports nausea, Patient currently denies abdominal pain. : No signs and/or symptoms were reported regarding the genitourinary system. EENT: No signs and/or symptoms were reported regarding the EENT system. Derm: Skin is intact, Skin is dry, Skin is normal, Skin temperature is warm bug bite noted to left side of abdomen with little redness. bug bite noted under right pectoral with no redness. bug bite noted to back with redness and warmth to the touch. pt reporting bug bite to back is causing diffuse back pain. Musculoskeletal: Circulation, motion, and sensation intact. Range of motion: intact in all extremities. 20:43 Reassessment: Patient appears in no apparent distress at this time. No changes from jd3 previously documented assessment. Patient and/or family updated on plan of care and expected duration. Pain level reassessed. Patient is alert, oriented x 3, equal unlabored respirations, skin warm/dry/pink. 21:53 Reassessment: Patient appears in no apparent distress at this time. No changes from jd3 previously documented assessment. Patient and/or family updated on plan of care and expected duration. Pain level reassessed. Patient is alert, oriented x 3, equal unlabored respirations, skin warm/dry/pink. 22:58 Reassessment: Patient appears in no apparent distress at this time. Patient and/or jd3 family updated on plan of care and expected duration. Pain level reassessed. Patient is alert, oriented x 3, equal unlabored respirations, skin warm/dry/pink. 07/22 00:19 Reassessment: Patient appears in no apparent distress at this time. Patient and/or jd3 family updated on plan of care and expected duration. Pain level reassessed. Patient is alert, oriented x 3, equal unlabored respirations, skin warm/dry/pink. Patient states feeling better. 01:22 Reassessment: Patient appears in no apparent distress at this time. Patient and/or jd3 family updated on plan of care and expected duration. Pain level reassessed. Patient is alert, oriented x 3, equal unlabored respirations, skin warm/dry/pink. Patient states feeling better. Vital Signs: 07/21 19:34 BP 111 / 72; Pulse 102; Resp 20 S; Temp 100.7(O); Pulse Ox 100% on R/A; Weight 72.57 kg jd3 (R); Height 5 ft. 8 in. (172.72 cm) (R); Pain 10/10; 20:43 BP 113 / 82; Pulse 103; Resp 19 S; Temp 100.6(O); Pulse Ox 97% on R/A; Pain 9/10; jd3 21:53 BP 94 / 56; Pulse 61; Resp 17 S; Pulse Ox 97% on R/A; jd3 22:58 BP 110 / 71; Pulse 77; Resp 17 S; Pulse Ox 99% on R/A; jd3 07/22 00:18 BP 97 / 58; Pulse 12; Resp 17 S; Temp 98.0(O); Pulse Ox 99% on R/A; Pain 3/10; jd3 01:23 BP 105 / 64; Pulse 66; Resp 17 S; Pulse Ox 99% on R/A; Pain 3/10; jd3 07/21 19:34 Body Mass Index 24.33 (72.57 kg, 172.72 cm) jd3 Pavel Coma Score: 05:39 Eye Response: spontaneous(4). Verbal Response: oriented(5). Motor Response: obeys tw4 commands(6). Total: 15. ED Course: 07/21 19:17 Patient arrived in ED. cf2 19:29 Og Vo MD is Attending Physician. tw4 19:32 Paul Andrew RN is Primary Nurse. jd3 19:34 Triage completed. jd3 19:37 Arm band placed on. jd3 19:42 Patient has correct armband on for positive identification. Bed in low position. Call jd3 light in reach. Side rails up X 1. Adult w/ patient. 19:56 Adult fever workup initiated per nursing protocol. jd3 20:27 Inserted saline lock: 20 gauge in right antecubital area, using aseptic technique. jd3 Blood collected. placed by VDP. 21:22 CT Head Brain wo Cont In Process Unspecified. EDMS 23:15 Assist provider with lumbar puncture: Set up LP tray. Performed by Og Vo MD jd3 CSF is clear. Puncture site dressed with band aid, Procedure was successful. Patient tolerated well. 07/22 01:23 IV discontinued, intact, bleeding controlled, No redness/swelling at site. Pressure jd3 dressing applied. Administered Medications: 07/21 19:55 Drug: Motrin 600 mg Route: PO; jd3 20:50 Follow up: Response: No adverse reaction jd3 20:29 Drug: NS 0.9% 1000 ml Route: IV; Rate: 1 bolus; Site: right antecubital; jd3 21:25 Follow up: Response: No adverse reaction; IV Status: Completed infusion; IV Intake: jd3 1000ml 21:08 Drug: Rocephin - (cefTRIAXone) 2 grams Route: IVPB; Infused Over: 30 mins; Site: right [facility] antecubital; 21:38 Follow up: Response: No adverse reaction; IV Status: Completed infusion; IV Intake: jd3 100ml 23:05 Drug: morphine 2 mg Route: IVP; Site: right antecubital; jd3 07/22 00:00 Follow up: Response: No adverse reaction; RASS: Alert and Calm (0) jd3 07/21 23:05 Drug: Zofran 4 mg Route: IVP; Site: right antecubital; jd3 07/22 00:00 Follow up: Response: No adverse reaction jd3 07/21 23:38 Drug: fentaNYL (PF) 25 mcg {Note: RASS score of 1..} Route: IVP; Site: right jd3 antecubital; 07/22 00:30 Follow up: Response: No adverse reaction; RASS: Alert and Calm (0) jd3 07/21 23:40 Not Given (Other Intervention Used): Lidocaine (1 %) 1 vials 20 ml Infiltration once; jd3 to bedside Intake: 21:25 IV: 1000ml; Total: 1000ml. jd3 21:38 IV: 100ml; Total: 1100ml. jd3 Outcome: 07/22 01:05 Discharge ordered by . [email or web address] 01:23 Discharged to home ambulatory, with family. jd3 01:23 Condition: stable 01:23 Discharge instructions given to patient, family, Instructed on discharge instructions, follow up and referral plans. medication usage, Demonstrated understanding of instructions, follow-up care, medications, Prescriptions given X 2. 01:24 Patient left the ED. jd3 Signatures: Dispatcher [employer] EDPaul Benavides RN RN jd3 Og Vo MD MD tw4 Avelina Hardy 2 Corrections: (The following items were deleted from the chart) 07/21 19:35 19:32 Initial Sepsis Screen: Does the patient meet any 2 criteria? No. Patient's jd3 initial sepsis screen is negative. Does the patient have a suspected source of infection? No. Patient's initial sepsis screen is negative. jd3 20:43 20:43 BP 113 / 82; Pulse 103bpm; Resp 19bpm; Spontaneous; Pulse Ox 97% RA; Pain 07/21; jd3 jd3
--- NOTE | 2019-07-22 01:07 | EDPHYS ---
Physician Documentation [facility] Name: Iain Felix Age: 24 yrs Sex: Male : 1995 Arrival Date: 07/21/2019 Time: 19:17 Bed 18 Private MD: ED Physician Og Vo HPI: 07/22 05:39 This 24 yrs old Male presents to ER via Ambulatory with complaints of tw4 Headache, Nausea, BITE BY TICK. 05:39 The patient complains of pain to the forehead. The patient describes the headache as tw4 constant. Onset: The symptoms/episode began/occurred today. Associated signs and symptoms: The patient has no apparent associated signs or symptoms. Severity of symptoms: At its worst the pain was moderate, in the emergency department the pain is unchanged. The patient has not experienced similar symptoms in the past. 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 - Social history:: Smoking status: Patient/guardian denies using tobacco. - Ebola Screening: : Patient negative for fever greater than or equal to 101.5 degrees Fahrenheit, and additional compatible Ebola Virus Disease symptoms. ROS: 07/22 05:39 Constitutional: Negative for fever, chills, and weight loss, Eyes: Negative for injury, tw4 pain, redness, and discharge, Cardiovascular: Negative for chest pain, palpitations, and edema, Respiratory: Negative for shortness of breath, cough, wheezing, and pleuritic chest pain, Abdomen/GI: Negative for abdominal pain, nausea, vomiting, diarrhea, and constipation, Back: Negative for injury and pain, MS/Extremity: Negative for injury and deformity, Skin: Negative for injury, rash, and discoloration. Neuro: Positive for headache, Negative for altered mental status, dizziness, gait disturbance, tinnitus, tremor. Exam: 05:39 Constitutional: This is a well developed, well nourished patient who is awake, alert, tw4 and in no acute distress. Head/Face: Normocephalic, atraumatic. Chest/axilla: Normal chest wall appearance and motion. Nontender with no deformity. No lesions are appreciated. Cardiovascular: Regular rate and rhythm with a normal S1 and S2. No gallops, murmurs, or rubs. Normal PMI, no JVD. No pulse deficits. Respiratory: Lungs have equal breath sounds bilaterally, clear to auscultation and percussion. No rales, rhonchi or wheezes noted. No increased work of breathing, no retractions or nasal flaring. Abdomen/GI: Soft, non-tender, with normal bowel sounds. No distension or tympany. No guarding or rebound. No evidence of tenderness throughout. Back: No spinal tenderness. No costovertebral tenderness. Full range of motion. MS/ Extremity: Pulses equal, no cyanosis. Neurovascular intact. Full, normal range of motion. Neuro: Awake and alert, GCS 15, oriented to person, place, time, and situation. Cranial nerves II-XII grossly intact. Motor strength 5/5 in all extremities. Sensory grossly intact. Cerebellar exam normal. Normal gait. Vital Signs: 07/21 19:34 BP 111 / 72; Pulse 102; Resp 20 S; Temp 100.7(O); Pulse Ox 100% on R/A; Weight 72.57 kg [facility] (R); Height 5 ft. 8 in. (172.72 cm) (R); Pain 10; 20:43 BP 113 / 82; Pulse 103; Resp 19 S; Temp 100.6(O); Pulse Ox 97% on R/A; Pain 9/10; jd3 21:53 BP 94 / 56; Pulse 61; Resp 17 S; Pulse Ox 97% on R/A; jd3 22:58 BP 110 / 71; Pulse 77; Resp 17 S; Pulse Ox 99% on R/A; jd3 07/22 00:18 BP 97 / 58; Pulse 12; Resp 17 S; Temp 98.0(O); Pulse Ox 99% on R/A; Pain 3/10; jd3 01:23 BP 105 / 64; Pulse 66; Resp 17 S; Pulse Ox 99% on R/A; Pain 3/10; jd3 07/21 19:34 Body Mass Index 24.33 (72.57 kg, 172.72 cm) [facility] Pavel Coma Score: 05:39 Eye Response: spontaneous(4). Verbal Response: oriented(5). Motor Response: obeys tw4 commands(6). Total: 15. Procedures: 05:39 Lumbar Puncture: Patient placed in sitting position. Prepped with Betadine. Draped tw4 using sterile technique. Collected 8 ml's of clear fluid. Puncture site dressed with 4x4s, Patient tolerated well. MDM: 07/21 19:30 Patient medically screened. tw4 07/22 05:39 Differential diagnosis: meningitis, migraine, temporal arteritis, tension headache. tw4 Data reviewed: vital signs, nurses notes. Counseling: I had a detailed discussion with the patient and/or guardian regarding: the historical points, exam findings, and any diagnostic results supporting the discharge/admit diagnosis, radiology results. Medication response: Toradol relieved patient's pain. The symptoms have resolved. 07/21 20:11 Order name: CBC with Diff; Complete Time: 01:02 [facility] 07/22 01:03 Interpretation: Normal except: WBC 3.8; MN% 12.5. [facility] 07/21 20:11 Order name: CMP; Complete Time: 01:02 [facility] 07/22 01:03 Interpretation: Normal except: GFR 86. [facility] 07/21 20:11 Order name: Blood Culture Adult (2) [facility] 07/21 23:02 Order name: Csf Culture [facility] 07/21 23:02 Order name: Fluid Cell Count,Body; Complete Time: 01:02 [facility] 07/22 01:03 Interpretation: Within normal limits. [facility] 07/21 20:57 Order name: CT Head Brain wo Cont [facility] 07/21 23:02 Order name: Spinal Fluid Profile; Complete Time: 01:02 [facility] 07/22 01:03 Interpretation: Within normal limits. tw 07/21 23:02 Order name: Csf Glucose [facility] 07/21 23:02 Order name: Csf Total Protein [facility] 07/21 23:02 Order name: CSF Cell Count [facility] 07/21 23:39 Order name: Miscellaneous Test Lab [facility] 07/21 22:18 Order name: LP Setup; Complete Time: 23:00 [facility] 07/21 22:59 Order name: LP Consents; Complete Time: 22:59 [facility] 07/21 23:02 Order name: LP Consents; Complete Time: 23:38 [facility] 07/21 23:02 Order name: LP Setup; Complete Time: 23:39 j Administered Medications: 07/21 19:55 Drug: Motrin 600 mg Route: PO; jd3 20:50 Follow up: Response: No adverse reaction jd3 20:29 Drug: NS 0.9% 1000 ml Route: IV; Rate: 1 bolus; Site: right antecubital; [facility] 21:25 Follow up: Response: No adverse reaction; IV Status: Completed infusion; IV Intake: jd3 1000ml 21:08 Drug: Rocephin - (cefTRIAXone) 2 grams Route: IVPB; Infused Over: 30 mins; Site: right [facility] antecubital; 21:38 Follow up: Response: No adverse reaction; IV Status: Completed infusion; IV Intake: jd3 100ml 23:05 Drug: morphine 2 mg Route: IVP; Site: right antecubital; [facility] 07/22 00:00 Follow up: Response: No adverse reaction; RASS: Alert and Calm (0) [facility] 07/21 23:05 Drug: Zofran 4 mg Route: IVP; Site: right antecubital; [facility] 07/22 00:00 Follow up: Response: No adverse reaction [facility] 07/21 23:38 Drug: fentaNYL (PF) 25 mcg {Note: RASS score of 1..} Route: IVP; Site: right [facility] antecubital; 07/22 00:30 Follow up: Response: No adverse reaction; RASS: Alert and Calm (0) [facility] 07/21 23:40 Not Given (Other Intervention Used): Lidocaine (1 %) 1 vials 20 ml Infiltration once; j to bedside Disposition: 07/22/19 01:05 Discharged to Home. Impression: Headache, viral syndrome. - Condition is Stable. - Discharge Instructions: Fever, Adult, Dengue Fever, General Headache Without Cause, [id number]. - Prescriptions for Fiorinal 50- 325-40 mg Oral Capsule - take 1 capsule by ORAL route every 4 hours As needed - not to exceed 6 capsules per day; 20 capsule. Ibuprofen 800 mg Oral Tablet - take 1 tablet by ORAL route every 8 hours As needed take with food; 30 tablet. - Medication Reconciliation Form, Thank You Letter, Antibiotic Education, Prescription Opioid Use form. - Follow up: Private Physician; When: Upon discharge from the Emergency Department; Reason: If symptoms return, Recheck today's complaints, Continuance of care. - Problem is new. - Symptoms have improved. Signatures: Dispatcher [employer] Paul Barroso RN RN jd3 Og Vo MD MD tw4 Corrections: (The following items were deleted from the chart) 23:39 23:03 CSF Bacterial Antigens (Tube 1+BA.LAB.BRZ ordered. [facility] 07/22 01:24 01:05 07/22/2019 01:05 Discharged to Home. Impression: Headache; viral syndrome. jd3 Condition is Stable. Forms are Medication Reconciliation Form, Thank You Letter, Antibiotic Education, Prescription Opioid Use. Follow up: Private Physician; When: Upon discharge from the Emergency Department; Reason: If symptoms return, Recheck today's complaints, Continuance of care. Problem is new. Symptoms have improved. tw4
[2019-07-22 01:46] VITALS: O2SAT 99
[2019-07-22 01:48] VITALS: TEMP 98
[2019-07-22 01:49] VITALS: BP 105/64
--- NOTE | 2019-07-22 09:54 | RAD REPORT ---
EXAM DESCRIPTION: CT - Head Brain Wo Cont - 07/22/2019 3:08 am CLINICAL HISTORY: 24 years Male, PAIN TECHNIQUE: 5 mm axial images were obtained along with 3 mm reformatted coronal and sagittal images. This exam was performed according to our departmental dose-optimization program, which includes autom ated exposure control, adjustment of the mA and/or kV according to patient size and/or use of iterati ve reconstruction technique. COMPARISON: None. FINDINGS: No acute abnormal extracerebral fluid collections are demonstrated. The cortical sulci, ventricles, and cisterns are within normal limits. There are no areas of altered attenuation identified to suggest acute hemorrhage, infarction, or mass lesion. The visualized portions of the paranasal sinuses and mastoid air cells are clear. IMPRESSION: 1. Normal study. Electronically signed by: Fred Gipson MD 07/21/2019 9:50 PM CDT Due to temporary technical issues with the PACS/Fluency reporting system, reports are being signed by the in house radiologist as a courtesy to ensure prompt reporting. The interpreting radiologist is f ully responsible for the content of the report.
== END 2019-07-22 01:24 | disposition home or self-care (01) ==
LOC: ER 19:14
PROC: 009U3ZX Drainage of Spinal Canal, Percutaneous Approach, Diagnostic (ICD-10-PCS; principal; 2019-07-22)
DX: B34.9 Viral infection, unspecified (principal)
CPT/HCPCS: 96365; 87040 ×2; 87070; 85025; 36415; 89050 ×2; 84157; 82945; 80053; 70450; 62270; 96375; 99284; J3010; J2270; J7030; J2405

== ENCOUNTER 2019-08-23 11:57 | Emergency (ER) | payer BC ==
[2019-08-23 12:21] LABS: Absolute Lymphocytes (CBC) 0.4 K/uL (0.7-4.9); Basophils % 0.3 % (0-1.3); Hematocrit 41.8 % (39.6-49.0); Lymphocytes % 4.9 % (15.3-44.8); MPV 8.5 fL (7.6-11.3); RBC Red Blood Cell Count 4.98 M/uL (4.33-5.43)
[2019-08-23] MEDS ORDERED: LORazepam 2 MG/ML VIAL ONE (12:27)
[2019-08-23 12:30] LABS: Protime INR 1.18
[2019-08-23 12:41] LABS: ALT/SGPT 21 U/L (12-78); AST/SGOT 19 U/L (15-37); Alkaline Phosphatase 58 U/L (45-117); BUN Blood Urea Nitrogen 18 mg/dL (7-18); Bicarbonate 23 mmol/L (21-32); Bilirubin Direct 0.2 mg/dL (0-0.2); Bilirubin Total 0.6 mg/dL (0.2-1.0); Glucose Level 103 mg/dL (74-106); Magnesium 1.5 mg/dL (1.8-2.4); NT PRO-BNP 14 pg/mL (<125); Potassium 3.7 mmol/L (3.5-5.1); Protein, Total 7.5 g/dL (6.4-8.2); Sodium Level 137 mmol/L (136-145); Troponin (Emerg Dept Use Only) < 0.02 ng/mL (0.0-0.045)
[2019-08-23] MEDS ORDERED: MAGNESIUM SULFATE 1 gm IVPB 1 GM/100 ML BAG IV ONE (13:10)
--- NOTE | 2019-08-23 13:54 | RAD REPORT ---
EXAM DESCRIPTION: RAD - Chest Single View - 08/23/2019 1:34 pm CLINICAL HISTORY: Chest pain, left arm pain COMPARISON: April 23 TECHNIQUE: AP portable chest image was obtained 1246 hours . FINDINGS: Lungs are clear. Shallow inspiration accentuates lung markings. Heart and vasculature are normal. No measurable pleural effusion and no pneumothorax. No acute bony abnormality seen. No acute aortic findings suspected. IMPRESSION: No acute cardiopulmonary process. No significant change from comparison.
--- NOTE | 2019-08-23 14:18 | RAD REPORT ---
EXAM DESCRIPTION: US - Abdomen Exam Limited - 08/23/2019 2:02 pm CLINICAL HISTORY: ABD PAIN COMPARISON: Abdomen Pelvis W Contrast dated 04/23/2019 FINDINGS: No gallstones, sludge or other abnormalities within the gallbladder lumen. There is no wal l thickening or pericholecystic fluid. No common duct stone or biliary tree dilatation identified. IMPRESSION: Normal gallbladder and biliary tree ultrasound.
--- NOTE | 2019-08-23 14:21 | RAD REPORT ---
EXAM DESCRIPTION: CT - Chest For Pe Angio - 08/23/2019 2:15 pm CLINICAL HISTORY: CHEST PAIN CHEST PAIN chest pain, back pain COMPARISON: Chest For Pe Angio dated 04/23/2019 Chest films same date TECHNIQUE: Dynamically enhanced 3 mm thick images of the chest were obtained during administration o f approximately 150mL Isovue 370 IV contrast. Coronal and oblique MIP reconstruction images were gene rated and reviewed. Exam utilizes a protocol to evaluate the pulmonary arterial tree. All CT scans are performed using dose optimization technique as appropriate and may include automated exposure control or mA/KV adjustment according to patient size. FINDINGS: No pulmonary emboli are identified. The aorta as imaged shows no acute or suspicious finding. No pericardial thickening or effusion. No infiltrate or mass in the lung parenchyma. No pleural effusion or pleural thickening. Lung marking s are not significantly different comparison. No mediastinal or hilar suspicious masses. No chest wall masses or abnormal axillary lymphadenopathy. IMPRESSION: No pulmonary emboli identified. No other significant or suspicious findings.
[2019-08-23 15:21] LABS: Urine White Blood Cell Casts OK
[2019-08-23 15:22] LABS: Blood Morphology Comment NOT SEEN (NOT SEEN); Platelet Estimate ADEQ
--- NOTE | 2019-08-23 15:31 | ER ---
Nurse's Notes [facility] Name: Iain Felix Age: 24 yrs Sex: Male : 1995 Arrival Date: 08/23/2019 Time: 11:[address] Private MD: Diagnosis: Chest pain, unspecified;Dehydration;Hypomagnesemia Presentation: 08/23 11:59 Presenting complaint: EMS states: C/O chest pain radiating to back and L arm that began ph at approx 1120 today, also reports N/V/D this am, hx of IA at 21 yoa r/t autonomic disease, Pt received ASA 325, nitro SL x 2, Fentanyl 75 mcg IVP, and Zofran 4 mg IVP. Transition of care: patient was not received from another setting of care. Onset of symptoms was August 23, 2019. Risk Assessment: Do you want to hurt yourself or someone else? Patient reports no desire to harm self or others. Initial Sepsis Screen: Does the patient meet any 2 criteria? No. Patient's initial sepsis screen is negative. Does the patient have a suspected source of infection? No. Patient's initial sepsis screen is negative. Care prior to arrival: IV initiated. 20 GA, in the right antecubital area. 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 - Social history:: Smoking status: Patient/guardian denies using tobacco. - Ebola Screening: : No symptoms or risks identified at this time. Screenin:03 Abuse screen: Denies threats or abuse. Denies injuries from another. Nutritional ph screening: No deficits noted. Tuberculosis screening: No symptoms or risk factors identified. Fall Risk None identified. Assessment: 12:20 General: Appears in no apparent distress. uncomfortable, slender, Behavior is ph cooperative, appropriate for age, anxious. Pain: Complains of pain in anterior aspect of left upper chest and left breast Pain radiates to back and left arm Pain currently is 8 out of 10 on a pain scale. Pain began 1 hour ago. Neuro: Level of Consciousness is awake, alert, obeys commands, Oriented to person, place, time, situation. Cardiovascular: Reports chest pain, nausea, shortness of breath, vomiting, Capillary refill < 3 seconds in bilateral fingers Patient's skin is warm and dry. Rhythm is sinus tachycardia Chest pain is located in left anterior chest wall radiates to left arm(s) back. Respiratory: Airway is patent Respiratory effort is even, unlabored, Respiratory pattern is regular, symmetrical. GI: Reports nausea, vomiting. Derm: Skin is intact, Skin is pink, warm \T\ dry. Musculoskeletal: Circulation, motion, and sensation intact. Range of motion: intact in all extremities. 13:37 Reassessment: Patient appears in no apparent distress at this time. Patient and/or ph family updated on plan of care and expected duration. Pain level reassessed. Patient is alert, oriented x 3, equal unlabored respirations, skin warm/dry/pink. Pt resting quietly, reports that pain has resolved, denies nausea or SOB at this time, VSS, family at bedside. 14:30 Reassessment: Patient appears in no apparent distress at this time. Patient and/or ph family updated on plan of care and expected duration. Pain level reassessed. Patient is alert, oriented x 3, equal unlabored respirations, skin warm/dry/pink. 15:29 Reassessment: Patient appears in no apparent distress at this time. No changes from previously documented assessment. Patient and/or family updated on plan of care and expected duration. Pain level reassessed. Patient is alert, oriented x 3, equal unlabored respirations, skin warm/dry/pink. Vital Signs: 12:02 BP 95 / 63; Pulse 104; Resp 22; Temp 99.1; Pulse Ox 99% on R/A; Weight 72.57 kg; Height ph 5 ft. 8 in. (172.72 cm); Pain 8/10; 12:33 BP 108 / 73; Pulse 93; Resp 15; Pulse Ox 99% on R/A; ph 13:38 BP 99 / 68; Pulse 90; Resp 18; Pulse Ox 99% on R/A; Pain 0/10; ph 14:30 BP 98 / 58; Pulse 97; Resp 16; Pulse Ox 99% on R/A; ph 15:30 BP 108 / 68; Pulse 90; Resp 16; Pulse Ox 100% on R/A; ph 15:50 Temp 97.8(TE); ph 12:02 Body Mass Index 24.33 (72.57 kg, 172.72 cm) ph ED Course: 11:58 Patient arrived in ED. ph 12:01 Triage completed. ph 12:03 Arm band placed on Patient placed in an exam room, on a stretcher, on monitor worker, ph on pulse oximetry. 12:03 Patient has correct armband on for positive identification. Bed in low position. Call ph light in reach. Side rails up X 1. telemetry monitor on. Pulse ox on. NIBP on. 12:04 Shelby Nava, RN is Primary Nurse. ph 12:04 Patient maintains SpO2 saturation greater than 95% on room air. ph 12:08 Roxana Kirkland FNP-C is PHCP. snw 12:08 Hayden Schmidt MD is Attending Physician. snw 12:12 EKG done, by ED staff, reviewed by Hayden Schmidt MD. kj1 12:15 Inserted saline lock: 20 gauge in right forearm, using aseptic technique. Maintain EMS ph IV. Dressing intact. Good blood return noted. Site clean \T\ dry. Gauge \T\ site: 20 RAC. 13:34 XRAY Chest (1 view) In Process Unspecified. EDMS 14:03 US Abdomen Limited In Process Unspecified. EDMS 14:15 CT Chest For PE Angio In Process Unspecified. EDMS 15:50 No provider procedures requiring assistance completed. IV discontinued, intact, ph bleeding controlled, No redness/swelling at site. Pressure dressing applied. Administered Medications: 12:24 Drug: NS 0.9% 1000 ml Route: IV; Rate: 1 bolus; Site: right antecubital; ph 13:37 Follow up: Response: No adverse reaction; IV Status: Completed infusion; IV Intake: ph 1000ml 12:30 Drug: Ativan 1 mg Route: IVP; Site: right antecubital; ph 13:37 Follow up: Response: No adverse reaction; Pain is decreased; Anxiety decreased ph 13:37 Drug: Magnesium Sulfate 1 grams Route: IVPB; Infused Over: 1 hrs; Site: right forearm; ph 14:54 Follow up: Response: No adverse reaction; IV Status: Completed infusion ph Intake: 13:37 IV: 1000ml; Total: 1000ml. ph Outcome: 15:30 Discharge ordered by MD. smith 15:50 Discharged to home ambulatory, with family. ph 15:50 Condition: improved 15:50 Discharge instructions given to patient, family, Instructed on discharge instructions, follow up and referral plans. medication usage, Demonstrated understanding of instructions, follow-up care, medications, Prescriptions given X 2. 15:51 Patient left the ED. ph Signatures: Dispatcher [employer] EDMS Roxana Kirkland, [employer] Shelby Nava RN RN ph Leticia Haque [email or web address] Corrections: (The following items were deleted from the chart) 12:04 11:59 Presenting complaint: EMS states: C/O chest pain radiating to back and L arm that ph began at approx 1120 today, also reports N/V/D this am, hx of IA at 21 yoa r/t autoimmune disease, Pt received ASA 325, nitro SL x 2, Fentanyl 75 mcg IVP, and Zofran 4 mg IVP ph
--- NOTE | 2019-08-23 15:32 | EDPHYS ---
Physician Documentation [facility] Name: Iain Felix Age: 24 yrs Sex: Male : 1995 Arrival Date: 08/23/2019 Time: 11:[address] Private MD: ED Physician Hayden Schmidt HPI: 08/23 12:26 This 24 yrs old Male presents to ER via EMS with complaints of Chest Pain. snw 12:26 The patient or guardian reports chest pain that is located primarily in the anterior snw chest wall, left. The pain does not radiate. Associated signs and symptoms: Pertinent positives: dizziness, vomiting, diarrhea. The chest pain is described as sharp. Modifying factors: the symptoms are aggravated by vomiting, diarrhea. EMS care prior to arrival includes: aspirin, nitroglycerin, saline lock, supplemental oxygen, fentanyl. The patient has experienced similar episodes in the past. The patient has not recently seen a physician, not in 4 years. 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 - Social history:: Smoking status: Patient/guardian denies using tobacco. - Ebola Screening: : No symptoms or risks identified at this time. ROS: 12:25 Constitutional: Negative for fever, chills, and weight loss, Eyes: Negative for injury, snw pain, redness, and discharge, ENT: Negative for injury, pain, and discharge, Neck: Negative for injury, pain, and swelling. 12:25 Respiratory: Negative for shortness of breath, cough, wheezing, and pleuritic chest pain. 12:25 Back: Negative for injury and pain, : Negative for injury, bleeding, discharge, and swelling, MS/Extremity: Negative for injury and deformity, Skin: Negative for injury, rash, and discoloration, Neuro: Negative for headache, weakness, numbness, tingling, and seizure, Psych: Negative for depression, anxiety, suicide ideation, homicidal ideation, and hallucinations. 12:25 Cardiovascular: Positive for chest pain. 12:25 Abdomen/GI: Positive for nausea, vomiting, and diarrhea. Exam: 12:24 Head/Face: Normocephalic, atraumatic. Eyes: Pupils equal round and reactive to light, snw extra-ocular motions intact. Lids and lashes normal. Conjunctiva and sclera are non-icteric and not injected. Cornea within normal limits. Periorbital areas with no swelling, redness, or edema. ENT: Nares patent. No nasal discharge, no septal abnormalities noted. Tympanic membranes are normal and external auditory canals are clear. Oropharynx with no redness, swelling, or masses, exudates, or evidence of obstruction, uvula midline. Mucous membranes moist. Neck: Trachea midline, no thyromegaly or masses palpated, and no cervical lymphadenopathy. Supple, full range of motion without nuchal rigidity, or vertebral point tenderness. No Meningismus. Chest/axilla: Normal chest wall appearance and motion. Nontender with no deformity. No lesions are appreciated. 12:24 Back: No spinal tenderness. No costovertebral tenderness. Full range of motion. Skin: Warm, dry with normal turgor. Normal color with no rashes, no lesions, and no evidence of cellulitis. MS/ Extremity: Pulses equal, no cyanosis. Neurovascular intact. Full, normal range of motion. Neuro: Awake and alert, GCS 15, oriented to person, place, time, and situation. Cranial nerves II-XII grossly intact. Motor strength 5/5 in all extremities. Sensory grossly intact. Cerebellar exam normal. Normal gait. Psych: Awake, alert, with orientation to person, place and time. Behavior, mood, and affect are within normal limits. 12:24 Constitutional: The patient appears alert, awake, anxious. 12:24 Cardiovascular: Rate: tachycardic, Rhythm: regular, Pulses: no pulse deficits are appreciated, Heart sounds: normal. 12:24 Respiratory: Respirations: shallow respirations, tachypnea. 12:24 Abdomen/GI: Inspection: abdomen appears normal, Bowel sounds: normal, Palpation: moderate abdominal tenderness, in the right upper quadrant and left upper quadrant. Vital Signs: 12:02 BP 95 / 63; Pulse 104; Resp 22; Temp 99.1; Pulse Ox 99% on R/A; Weight 72.57 kg; Height ph 5 ft. 8 in. (172.72 cm); Pain 8/10; 12:33 BP 108 / 73; Pulse 93; Resp 15; Pulse Ox 99% on R/A; ph 13:38 BP 99 / 68; Pulse 90; Resp 18; Pulse Ox 99% on R/A; Pain 0/10; ph 14:30 BP 98 / 58; Pulse 97; Resp 16; Pulse Ox 99% on R/A; ph 15:30 BP 108 / 68; Pulse 90; Resp 16; Pulse Ox 100% on R/A; ph 15:50 Temp 97.8(TE); ph 12:02 Body Mass Index 24.33 (72.57 kg, 172.72 cm) ph MDM: 12:08 Patient medically screened. snw 15:47 Data reviewed: vital signs, nurses notes, lab test result(s), EKG, radiologic studies. snw Data interpreted: Pulse oximetry: on room air is 100 %. Interpretation: normal. Counseling: I had a detailed discussion with the patient and/or guardian regarding: the historical points, exam findings, and any diagnostic results supporting the discharge/admit diagnosis, lab results, radiology results, the need for outpatient follow up, to return to the emergency department if symptoms worsen or persist or if there are any questions or concerns that arise at home. Special discussion: Based on the history and exam findings, there is no indication for further emergent testing or inpatient evaluation. I discussed with the patient/guardian the need to see the primary care provider for further evaluation of the symptoms. 08/23 12:04 Order name: Basic Metabolic Panel; Complete Time: 12:59 la1 08/23 12:04 Order name: CBC with Diff; Complete Time: 15:29 la1 08/23 12:04 Order name: LFT's; Complete Time: 12:59 la1 08/23 12:04 Order name: Magnesium; Complete Time: 12:59 la1 08/23 12:04 Order name: NT PRO-BNP; Complete Time: 12:59 la1 08/23 12:04 Order name: PT-INR; Complete Time: 12:31 la1 08/23 12:04 Order name: Troponin (emerg Dept Use Only); Complete Time: 12:59 la1 08/23 12:04 Order name: XRAY Chest (1 view); Complete Time: 14:01 la1 08/23 12:09 Order name: DD; Complete Time: 12:59 snw 08/23 12:22 Order name: Lipase; Complete Time: 13:27 snw 08/23 12:29 Order name: US Abdomen Limited; Complete Time: 14:22 snw 08/23 13:46 Order name: CT Chest For PE Angio; Complete Time: 15:10 snw 08/23 15:20 Order name: CBC Smear Scan; Complete Time: 15:29 EDMS 08/23 12:04 Order name: EKG; Complete Time: 12:05 la1 08/23 12:04 Order name: Cardiac monitoring; Complete Time: 12:20 la1 08/23 12:04 Order name: EKG - Nurse/Tech; Complete Time: 12:20 la1 08/23 12:04 Order name: IV Saline Lock; Complete Time: 12:20 la1 08/23 12:04 Order name: Labs collected and sent; Complete Time: 12:20 la1 08/23 12:04 Order name: O2 Per Protocol; Complete Time: 12:20 la1 08/23 12:04 Order name: O2 Sat Monitoring; Complete Time: 12:20 la1 Administered Medications: 12:24 Drug: NS 0.9% 1000 ml Route: IV; Rate: 1 bolus; Site: right antecubital; ph 13:37 Follow up: Response: No adverse reaction; IV Status: Completed infusion; IV Intake: ph 1000ml 12:30 Drug: Ativan 1 mg Route: IVP; Site: right antecubital; ph 13:37 Follow up: Response: No adverse reaction; Pain is decreased; Anxiety decreased ph 13:37 Drug: Magnesium Sulfate 1 grams Route: IVPB; Infused Over: 1 hrs; Site: right forearm; ph 14:54 Follow up: Response: No adverse reaction; IV Status: Completed infusion ph Disposition: 16:41 Co-signature as Attending Physician, Hayden Schmidt MD I agree with the assessment and kdr plan of care. Disposition: 08/23/19 15:30 Discharged to Home. Impression: Chest pain, unspecified, Dehydration, Hypomagnesemia. - Condition is Stable. - Discharge Instructions: Nonspecific Chest Pain, Dehydration, Adult, Potassium Content of Foods, Hypomagnesemia. - Prescriptions for orphenadrine citrate 100 mg Oral Tablet Sustained Release - take 1 tablet by ORAL route 2 times per day As needed; 20 tablet. promethazine 25 mg Oral Tablet - take 1 tablet by ORAL route every 6 hours As needed; 20 tablet. - Work release form, Medication Reconciliation Form, Thank You Letter, Antibiotic Education, Prescription Opioid Use form. - Follow up: Private Physician; When: 2 - 3 days; Reason: Recheck today's complaints, Continuance of care, Re-evaluation by your physician. Follow up: Emergency Department; When: As needed; Reason: Worsening of condition. Signatures: Dispatcher [employer] EDNM Hayden Schmidt MD MD [facility] Roxana Kirkland FNP-C FNP-Aj Tavarez RN RN la1 Shelby Nava RN RN ph Corrections: (The following items were deleted from the chart) 15:51 15:30 08/23/2019 15:30 Discharged to Home. Impression: Chest pain, unspecified; ph Dehydration; Hypomagnesemia. Condition is Stable. Forms are Medication Reconciliation Form, Thank You Letter, Antibiotic Education, Prescription Opioid Use. Follow up: Private Physician; When: 2 - 3 days; Reason: Recheck today's complaints, Continuance of care, Re-evaluation by your physician. Follow up: Emergency Department; When: As needed; Reason: Worsening of condition. snw
[2019-08-23 16:08] VITALS: BP 108/68; O2SAT 100
[2019-08-23 16:09] VITALS: TEMP 97.8
--- NOTE | 2019-08-24 10:04 | EKG ---
Test Date: 2019-08-23 Test Time: 12:07:37 Anesthesiology Technologist: SU MEASUREMENT RESULTS: Intervals: Rate: 107 NC: 124 QRSD: 86 QT: 318 QTc: 424 [place]: P: 67 NC: 124 QRS: 87 T: 43 INTERPRETIVE STATEMENTS: Sinus tachycardia Otherwise normal ECG Compared to ECG 04/23/2019 02:47:06 Sinus rhythm no longer present Electronically Signed On 08-24-19 10:02:43 CDT by Cheo Hickey
== END 2019-08-23 15:51 | disposition home or self-care (01) ==
LOC: ER 11:57
DX: E86.0 Dehydration (principal); E83.42 Hypomagnesemia; I25.2 Old myocardial infarction
CPT/HCPCS: 96365; 96361; 93005; 85025; 80048; 36415; 83735; 85610; 85379; 80076; 84484; 83690; 83880; 71275; 71045; 76705; 96375; 99285; Q9967; J3475

== ENCOUNTER 2020-01-04 21:44 | Emergency (ER) | payer BC ==
--- OUTSIDE RECORDS SUMMARY | 2020-01-04 21:46 | XMS REPORT ---
:1995 [facility] [address] [place] [address] Care Team Providers Name Role Phone DR [...] ID 2018-04-16 2018-04-16 Outpatient E YESSENIA JOYA [facility] [id number] 13:32:00 14:17:00 2016-05-30 2016-06-01 Outpatient Juliana GALLEGOS [facility] [id number] 00:59:00 11:15:00 CHANELLE Results Test Description Test Time Test Comments Text Results Atomic Results Result Comments XR HAND LEFT COMPLETE 3 2018-04-16 14:17:15 Left hand, 3 viewsLocation code: VIEWS *OW* [id number] HISTORY: [id number]: Traumatic injuryCOMMENTS: AP, lateral, and oblique views of the left hand demonstrate no acutefracture or malalignment. The soft tissues are unremarkable.IMPRESSION: No acute radiographic abnormality.
[2020-01-04] MEDS ORDERED: ONDANSETRON 4 MG/2 ML VIAL ONE (22:45)
[2020-01-04] MEDS ORDERED: MORPHINE 4 MG/ML SYR ONE (22:45)
[2020-01-04] MEDS ORDERED: NA CHLORIDE 0.9% 1,000 ML ONE (22:46)
[2020-01-04 22:59] LABS: Absolute Lymphocytes (CBC) 1.5 K/uL (0.7-4.9); Basophils % 0.8 % (0-1.3); Hematocrit 42.5 % (39.6-49.0); Lymphocytes % 33.8 % (15.3-44.8); MPV 8.6 fL (7.6-11.3); RBC Red Blood Cell Count 4.95 M/uL (4.33-5.43)
--- NOTE | 2020-01-04 23:06 | RAD REPORT ---
EXAM DESCRIPTION: RAD - Elbow Left 3 View - 01/04/2020 10:59 pm CLINICAL HISTORY: PAIN COMPARISON: No comparisons FINDINGS: No fracture or dislocation seen.
--- NOTE | 2020-01-05 00:03 | ER ---
Nurse's Notes [facility] Name: Iain Felix Age: 24 yrs Sex: Male : 1995 Arrival Date: 01/04/2020 Time: 21:47 Bed 18 Private MD: Diagnosis: Contusion of left elbow;Contusion of lower back and pelvis;Fall on and from stairs and steps Presentation: 01/04 22:31 Presenting complaint: Patient states: "I fell down a flight of stairs. I didn't loose jd3 consciousness, but I hit my lower back and my left elbow.". Care prior to arrival: None. Mechanism of Injury: Fall down steps. Trauma event details: Injury occurred in the [facility], Injury occurred: at home. Injury occurred: January 04, 2020. 22:31 Method Of Arrival: Ambulatory jd3 22:31 Acuity: ZULEMA 3 jd3 23:05 Transition of care: patient was not received from another setting of care. Onset of jd3 symptoms was January 04, 2020. Risk Assessment: Do you want to hurt yourself or someone else? Patient reports no desire to harm self or others. Initial Sepsis Screen: Does the patient meet any 2 criteria? No. Patient's initial sepsis screen is negative. Does the patient have a suspected source of infection? No. Patient's initial sepsis screen is negative. Trauma Activation: Alert Physician: ED Physician; Name: Dr. 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 - Coronavirus screen:: The patient has NOT traveled to [place] in the past 14 days. The patient has NOT had contact with known/suspected case of Coronavirus? Proceed with normal triage procedures. - Immunization history: Last tetanus immunization: unknown. - Social history:: Smoking status: Patient denies any tobacco usage or history of. - Ebola Screening: : Patient negative for fever greater than or equal to 101.5 degrees Fahrenheit, and additional compatible Ebola Virus Disease symptoms. Screenin:20 Abuse screen: Denies threats or abuse. Nutritional screening: No deficits noted. jd3 Tuberculosis screening: No symptoms or risk factors identified. Fall Risk Ambulatory Aid- None/Bed Rest/Nurse Assist (0 pts). Gait- Normal/Bed Rest/Wheelchair (0 pts) Mental Status- Oriented to own ability (0 pts). Total Fletcher Fall Scale indicates No Risk (0-24 pts). Primary Survey: 22:20 NO uncontrolled hemorrhage observed. A: The patient is alert. Airway: patent, No jd3 supplemental oxygen in use on arrival. Oral cavity: clear, Trachea midline. Breathing/Chest: Respiratory pattern: regular, Respiratory effort: spontaneous, unlabored, Chest inspection: symmetrical rise and fall of the chest. Circulation: Pulses: palpable right radial artery and left radial artery. Skin color: pink, Skin temperature: warm. Disability Alert. Exposure/Environment: All clothing and personal items were removed. Forensic evidence collection is not deemed to be indicated at this time. Items placed in patient belonging bag. There is no evidence of uncontrolled external bleeding. Obvious injury(ies) are noted at this time: abrasion noted to left albow A warming method has been applied: A warm blanket has been provided to the patient. 23:03 Reassessment Airway Airway Patent Oxygen No O2 Oral cavity Clear Trachea Midline jd3 Breathing/Chest Respiratory pattern Regular Respiratory effort Spontaneous Unlabored Chest inspection Symmetrical Circulation Pulses Palpable Color [place] Temperature Warm Disability Alert. Secondary Survey: 22:20 HEENT: No deficits noted. Gastrointestinal: No deficits noted. : No signs and/or jd3 symptoms were reported regarding the genitourinary system. Musculoskeletal: Circulation, motion, and sensation intact. Range of motion: limited in left elbow. Assessment: 22:33 General: Appears in no apparent distress. uncomfortable, Behavior is calm, cooperative, jd3 appropriate for age. Pain: Complains of pain in low back area, mid back area and left elbow Quality of pain is described as aching, shooting, tender. Neuro: Level of Consciousness is awake, alert, obeys commands, Oriented to person, place, time, situation, Denies blurred vision dizziness, numbness diplopia. EENT: No signs and/or symptoms were reported regarding the EENT system. Cardiovascular: Denies chest pain, Capillary refill < 3 seconds Patient's skin is warm and dry. Pulses are palpable in right radial artery and left radial artery. Respiratory: Airway is patent Respiratory effort is even, unlabored, Respiratory pattern is regular, symmetrical, Denies cough, shortness of breath. GI: No signs and/or symptoms were reported involving the gastrointestinal system. Patient currently denies abdominal pain, constipation, diarrhea, nausea, vomiting. : No signs and/or symptoms were reported regarding the genitourinary system. Derm: Skin is intact, Skin is dry, Skin is normal, Skin temperature is warm. Musculoskeletal: Circulation, motion, and sensation intact. Range of motion: limited in left elbow. Injury Description: Abrasion sustained to left elbow. 23:30 Reassessment: Patient appears in no apparent distress at this time. Patient and/or d3 family updated on plan of care and expected duration. Pain level reassessed. Patient is alert, oriented x 3, equal unlabored respirations, skin warm/dry/pink. Patient states feeling better. 01/05 00:26 Reassessment: Patient appears in no apparent distress at this time. No changes from jd3 previously documented assessment. Patient and/or family updated on plan of care and expected duration. Pain level reassessed. Patient is alert, oriented x 3, equal unlabored respirations, skin warm/dry/pink. Vital Signs: 01/04 22:37 BP 128 / 98; Pulse 95; Resp 17 S; Temp 98.0(O); Pulse Ox 99% on R/A; Weight 74.84 kg jd3 (R); Height 5 ft. 8 in. (172.72 cm) (R); Pain 10/10; 01/05 00:27 BP 125 / 96; Pulse 83; Resp 19 S; Pulse Ox 97% on R/A; jd3 01/04 22:37 Body Mass Index 25.09 (74.84 kg, 172.72 cm) jd3 Pavel Coma Score: 01/04 22:20 Eye Response: spontaneous(4). Verbal Response: oriented(5). Motor Response: obeys jd3 commands(6). Total: 15. 01/05 00:27 Eye Response: spontaneous(4). Verbal Response: oriented(5). Motor Response: obeys jd3 commands(6). Total: 15. Trauma Score (Adult): 01/04 22:20 Eye Response: spontaneous(1); Verbal Response: oriented(1); Motor Response: obeys jd3 commands(2); Systolic BP: > 89 mm Hg(4); Respiratory Rate: 10 to 29 per min(4); [place] Score: 15; Trauma Score: 12 01/05 00:27 Eye Response: spontaneous(1); Verbal Response: oriented(1); Motor Response: obeys jd3 commands(2); Systolic BP: > 89 mm Hg(4); Respiratory Rate: 10 to 29 per min(4); [place] Score: 15; Trauma Score: 12 ED Course: 01/04 21:47 Patient arrived in ED. jg7 22:20 Paul Andrew, DAVE is Primary Nurse. jd3 22:23 Lokesh Rodriguez NP is PHCP. pm1 22:23 Brady Wynn MD is Attending Physician. pm1 22:30 Patient maintains SpO2 saturation greater than 95% on room air. Thermoregulation: warm jd3 blanket given to patient. 22:33 Triage completed. jd3 22:38 Arm band placed on. jd3 22:39 Inserted saline lock: 18 gauge in right antecubital area, using aseptic technique. jb5 Blood collected. 22:46 Basic Metabolic Panel Sent. jb5 22:46 CBC with Diff Sent. jb5 22:46 CT Traumagram (Head C Spine CAP W Con) Sent. jb5 22:46 Creatinine for Radiology Sent. jb5 22:46 Type And Screen Sent. jb5 23:07 Patient has correct armband on for positive identification. Placed in gown. Bed in low jd3 position. Call light in reach. Side rails up X 1. Adult w/ patient. 23:43 CT Traumagram (Head C Spine CAP W Con) In Process Unspecified. EDMS 01/05 00:26 No provider procedures requiring assistance completed. IV discontinued, intact, jd3 bleeding controlled, No redness/swelling at site. Pressure dressing applied. Administered Medications: 01/04 22:46 Drug: morphine 4 mg Route: IVP; Site: right antecubital; jd3 23:45 Follow up: Response: No adverse reaction; RASS: Alert and Calm (0) jd3 22:46 Drug: Zofran 4 mg Route: IVP; Site: right antecubital; jd3 23:45 Follow up: Response: No adverse reaction jd3 22:46 Drug: NS 0.9% 1000 ml Route: IV; Rate: 1000 ml; Site: right antecubital; jd3 01/05 00:28 Follow up: Response: No adverse reaction; IV Status: Completed infusion; IV Intake: jd3 1000ml Intake: 00:27 PO: 0ml; Total: 0ml. jd3 00:28 IV: 1000ml; Total: 1000ml. jd3 Output: 00:27 Urine: 0ml; Total: 0ml. jd3 Outcome: 00:03 Discharge ordered by MD. pm1 00:26 Discharged to home via wheelchair, with family. jd3 00:26 Condition: stable 00:26 Discharge instructions given to patient, Instructed on discharge instructions, follow up and referral plans. medication usage, Demonstrated understanding of instructions, follow-up care, medications, Prescriptions given X 2. 00:28 Patient's length of stay in the Emergency Department was greater than 2 hours. waiting jd3 for diagnostic resultsPatient's length of stay extended due to 00:30 Patient left the ED. jd3 Signatures: Dispatcher [employer] EDHI Lokesh Rodriguez NP AIR POLLUTION ENGINEER pm1 Amanda Granados5 Paul Andrew RN RN jd3 Adrienne Curryg7
--- NOTE | 2020-01-05 00:04 | EDPHYS ---
Physician Documentation [facility] Name: Iain Felix Age: 24 yrs Sex: Male : 1995 Arrival Date: 01/04/2020 Time: 21:47 Bed 18 Private MD: ED Physician Brady Wynn HPI: 01/04 22:31 This 24 yrs old Male presents to ER via Unassigned with complaints of Elbow pm1 Injury, Back Pain. 22:32 Trauma demographics: Location of Injury: The injury occurred at home. Mechanism of pm1 injury: Fall: Patient fell down half flight of stairs from the middle platform to the floor. Onset: The symptoms/episode began/occurred just prior to arrival. Patient had wet shoes on after mopping the floor and was going down the stairs. Slipped from the middle platform and fell down the stairs. Patient presenting with pain to his left lower back and left elbow. 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 22:32 No headache, neck pain, LOC. 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 - Coronavirus screen:: The patient has NOT traveled to [place] in the past 14 days. The patient has NOT had contact with known/suspected case of Coronavirus? Proceed with normal triage procedures. - Immunization history: Last tetanus immunization: unknown. - Social history:: Smoking status: Patient denies any tobacco usage or history of. - Ebola Screening: : Patient negative for fever greater than or equal to 101.5 degrees Fahrenheit, and additional compatible Ebola Virus Disease symptoms. ROS: 23:06 Constitutional: Negative for fever, chills, and weight loss, Eyes: Negative for injury, pm1 pain, redness, and discharge, ENT: Negative for injury, pain, and discharge, Neck: Negative for injury, pain, and swelling, Cardiovascular: Negative for chest pain, palpitations, and edema, Respiratory: Negative for shortness of breath, cough, wheezing, and pleuritic chest pain, Abdomen/GI: Negative for abdominal pain, nausea, vomiting, diarrhea, and constipation. 23:06 : Negative for injury, bleeding, discharge, and swelling, Skin: Negative for injury, rash, and discoloration. 23:06 Neuro: Negative for headache, weakness, numbness, tingling, and seizure. 23:06 Back: Positive for of the left low back, pain, Negative for radiated pain. 23:06 MS/extremity: Positive for pain, of the left elbow, Negative for deformity, paresthesias, tingling. Exam: 23:06 Constitutional: This is a well developed, well nourished patient who is awake, alert, pm1 and in no acute distress. Head/Face: Normocephalic, atraumatic. Neck: Trachea midline, no thyromegaly or masses palpated, and no cervical lymphadenopathy. Supple, full range of motion without nuchal rigidity, or vertebral point tenderness. No Meningismus. Chest/axilla: Normal chest wall appearance and motion. Nontender with no deformity. No lesions are appreciated. Cardiovascular: Regular rate and rhythm with a normal S1 and S2. No gallops, murmurs, or rubs. Normal PMI, no JVD. No pulse deficits. Respiratory: Lungs have equal breath sounds bilaterally, clear to auscultation and percussion. No rales, rhonchi or wheezes noted. No increased work of breathing, no retractions or nasal flaring. Abdomen/GI: Soft, non-tender, with normal bowel sounds. No distension or tympany. No guarding or rebound. No evidence of tenderness throughout. 23:06 Skin: Warm, dry with normal turgor. Normal color with no rashes, no lesions, and no evidence of cellulitis. 23:06 Back: pain, that is mild, of the left low back. 23:06 Musculoskeletal/extremity: Extremities: grossly normal except: noted in the left elbow: tenderness, There is no evidence of deformity, swelling, Circulation is intact in all extremities. 23:06 Neuro: Orientation: is normal, Mentation: is normal, Motor: is normal, moves all fours, Sensation: is normal, no obvious gross deficits. Vital Signs: 22:37 BP 128 / 98; Pulse 95; Resp 17 S; Temp 98.0(O); Pulse Ox 99% on R/A; Weight 74.84 kg jd3 (R); Height 5 ft. 8 in. (172.72 cm) (R); Pain 10/10; 01/05 00:27 BP 125 / 96; Pulse 83; Resp 19 S; Pulse Ox 97% on R/A; jd3 01/04 22:37 Body Mass Index 25.09 (74.84 kg, 172.72 cm) j Pavel Coma Score: 01/04 22:20 Eye Response: spontaneous(4). Verbal Response: oriented(5). Motor Response: obeys jd3 commands(6). Total: 15. 01/05 00:27 Eye Response: spontaneous(4). Verbal Response: oriented(5). Motor Response: obeys jd3 commands(6). Total: 15. Trauma Score (Adult): 01/04 22:20 Eye Response: spontaneous(1); Verbal Response: oriented(1); Motor Response: obeys jd3 commands(2); Systolic BP: > 89 mm Hg(4); Respiratory Rate: 10 to 29 per min(4); Hope Score: 15; Trauma Score: 12 01/05 00:27 Eye Response: spontaneous(1); Verbal Response: oriented(1); Motor Response: obeys jd3 commands(2); Systolic BP: > 89 mm Hg(4); Respiratory Rate: 10 to 29 per min(4); Hope Score: 15; Trauma Score: 12 MDM: 01/04 22:23 Patient medically screened. pm1 01/05 00:00 Data reviewed: vital signs. Data interpreted: Pulse oximetry: on room air is 99 %. pm1 Interpretation: normal. Counseling: I had a detailed discussion with the patient and/or guardian regarding: the historical points, exam findings, and any diagnostic results supporting the discharge/admit diagnosis, lab results, radiology results, the need for outpatient follow up, a orthopedic surgeon, to return to the emergency department if symptoms worsen or persist or if there are any questions or concerns that arise at home. 01/04 22:30 Order name: Basic Metabolic Panel pm1 01/04 22:30 Order name: CBC with Diff pm1 01/04 22:30 Order name: Creatinine for Radiology pm1 01/04 22:30 Order name: Type And Screen; Complete Time: 00:23 pm1 01/04 23:02 Order name: CBC with Automated Diff; Complete Time: 23:18 EDMS 01/04 23:08 Order name: Basic Metabolic Panel; Complete Time: 23:18 EDMS 01/04 22:30 Order name: CT Traumagram (Head C Spine CAP W Con) pm1 01/04 22:30 Order name: Labs collected and sent; Complete Time: 22:46 pm1 01/04 22:30 Order name: Elbow Left 3 View XRAY pm1 01/04 23:08 Order name: Creatinine (Radiology Only); Complete Time: 23:18 EDMS 01/04 23:45 Order name: RAD; Complete Time: 00:23 EDMS 01/05 00:03 Order name: Sling; Complete Time: 00:17 pm1 Administered Medications: 01/04 22:46 Drug: morphine 4 mg Route: IVP; Site: right antecubital; jd3 23:45 Follow up: Response: No adverse reaction; RASS: Alert and Calm (0) jd3 22:46 Drug: Zofran 4 mg Route: IVP; Site: right antecubital; jd3 23:45 Follow up: Response: No adverse reaction jd3 22:46 Drug: NS 0.9% 1000 ml Route: IV; Rate: 1000 ml; Site: right antecubital; jd3 01/05 00:28 Follow up: Response: No adverse reaction; IV Status: Completed infusion; IV Intake: jd3 1000ml Disposition: 07:09 Co-signature as Attending Physician, Brady Wynn MD I agree with the assessment and jose plan of care. Disposition: 01/05/20 00:03 Discharged to Home. Impression: Contusion of lower back and pelvis, Contusion of left elbow, Fall on and from stairs and steps. - Condition is Stable. - Discharge Instructions: Contusion, Fall Prevention in the Home. - Prescriptions for Tylenol- Codeine #3 300-30 mg Oral Tablet - take 2 tablets by ORAL route every 6 hours As needed; 20 tablet. Diclofenac Sodium 75 mg Oral Tablet, Delayed Release (E.C.) - take 1 tablet by ORAL route 2 times per day As needed; 30 tablet. - Medication Reconciliation Form, Thank You Letter, Antibiotic Education, Prescription Opioid Use, Work release form form. - Follow up: Emergency Department; When: As needed; Reason: Worsening of condition. Follow up: Private Physician; When: 2 - 3 days; Reason: Recheck today's complaints, Continuance of care, Re-evaluation by your physician. - Problem is new. - Symptoms have improved. Signatures: Dispatcher [employer] EDBrady Nguyen, Lokesh Duarte MD, cha, CONTINUOUS VULCANIZING MACHINE OPERATOR CONTINUOUS VULCANIZING MACHINE OPERATOR pm1 Paul Andrew, RN RN jd3 Corrections: (The following items were deleted from the chart) 00:30 00:03 01/05/2020 00:03 Discharged to Home. Impression: Contusion of lower back and jd3 pelvis; Contusion of left elbow; Fall on and from stairs and steps. Condition is Stable. Forms are Medication Reconciliation Form, Thank You Letter, Antibiotic Education, Prescription Opioid Use. Follow up: Emergency Department; When: As needed; Reason: Worsening of condition. Follow up: Private Physician; When: 2 - 3 days; Reason: Recheck today's complaints, Continuance of care, Re-evaluation by your physician. Problem is new. Symptoms have improved. pm1
[2020-01-05 01:35] VITALS: TEMP 98
[2020-01-05 01:37] VITALS: BP 125/96; O2SAT 97
--- NOTE | 2020-01-05 10:28 | RAD REPORT ---
EXAM DESCRIPTION: CT Head and Cervical Spine With Intravenous Contrast CLINICAL HISTORY: The patient is 24 years old and is Male; Fall injury, pain TECHNIQUE: Axial computed tomography images of the head/brain and cervical spine with intravenous co ntrast. Sagittal and coronal reformatted images were created and reviewed. This CT exam was perfo rmed using one or more of the following dose reduction techniques: automated exposure control, adju stment of the mA and/or kV according to patient size, and/or use of iterative reconstruction techniqu e. COMPARISON: No relevant prior studies available. FINDINGS: BRAIN: Unremarkable. No hemorrhage. No edema. Normal enhancement. VENTRICLES: Unremarkable. No ventriculomegaly. SKULL: No acute fracture. SINUSES: Unremarkable as visualized. No acute sinusitis. MASTOID AIR CELLS: Unremarkable as visualized. No mastoid effusion. VERTEBRAE: The vertebral body heights and alignment are maintained. No acute fracture. DISCS/SPINAL CANAL/NEURAL FORAMINA: The intervertebral disc spaces are maintained. No spinal can al stenosis. SOFT TISSUES: The soft tissues are normal. LUNG APICES: Unremarkable as visualized. IMPRESSION: Normal head/brain and cervical spine CT. EXAM: CT Chest, Abdomen and Pelvis With Intravenous Contrast CLINICAL HISTORY: The patient is 24 years old and is Male; Fall injury, pain TECHNIQUE: Axial computed tomography images of the chest, abdomen and pelvis with intravenous contra st. Sagittal and coronal reformatted images were created and reviewed. This CT exam was performed using one or more of the following dose reduction techniques: automated exposure control, adjustme nt of the mA and/or kV according to patient size, and/or use of iterative reconstruction technique. COMPARISON: No relevant prior studies available. FINDINGS: CHEST: LUNGS: The lungs are clear of focal opacity, mass, or consolidation. PLEURAL SPACE: Unremarkable. No significant effusion. No pneumothorax. HEART: No cardiomegaly. No pericardial effusion. ABDOMEN: LIVER: Unremarkable. No mass. GALLBLADDER AND BILE DUCTS: No calcified stones. No ductal dilation. PANCREAS: No ductal dilation. No mass. SPLEEN: Unremarkable. ADRENALS: Unremarkable. No mass. KIDNEYS AND URETERS: Unremarkable. The kidneys enhance symmetrically. No obstructing renal or ur eteral calculus is seen. No hydronephrosis or hydroureter. No perinephric fluid or stranding. STOMACH AND BOWEL: The stomach is well distended with food contents. The small bowel is normal i n caliber. Stool is present throughout colon. There is no mucosal thickening or evidence of bowel obs truction. PELVIS: APPENDIX: The appendix is surgically absent. BLADDER: The bladder is well distended. REPRODUCTIVE: Unremarkable as visualized. CHEST, ABDOMEN and PELVIS: INTRAPERITONEAL SPACE: Unremarkable. No significant fluid collection. No free air. BONES/JOINTS: There is no acute fracture of the visualized axial and appendicular skeleton. SOFT TISSUES: The soft tissues are normal. VASCULATURE: Unremarkable. No aortic aneurysm. LYMPH NODES: Unremarkable. No enlarged lymph nodes. IMPRESSION: No evidence of solid organ injury or traumatic bony findings on this contrasted CT of th e chest, abdomen, and pelvis. Electronically signed by: Loli Ireland MD 01/04/2020 11:46 PM MEDICAL TYPIST Due to temporary technical issues with the PACS/Fluency reporting system, reports are being signed b y the in house radiologist as a courtesy to ensure prompt reporting. The interpreting radiologist is fully responsible for the content of the report.
== END 2020-01-05 00:30 | disposition home or self-care (01) ==
LOC: ER 21:44
DX: S30.0XXA Contusion of lower back and pelvis, initial encounter (principal); S50.02XA Contusion of left elbow, initial encounter; W10.8XXA Fall (on) (from) other stairs and steps, initial encounter; Y93.89 Activity, other specified; Y92.9 Unspecified place or not applicable; I25.2 Old myocardial infarction
CPT/HCPCS: 96361; 85025; 80048; 36415; 86900; 86850; 86901; 70450; 72125; 71260; 74177; 73080; 96375; 96374; 99284; Q9967; J7030; J2405

== ENCOUNTER 2020-05-18 23:12 | Emergency (ER) | payer BC ==
--- OUTSIDE RECORDS SUMMARY | 2020-05-18 23:13 | XMS REPORT | Clinical Summary ---
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
--- OUTSIDE RECORDS SUMMARY | 2020-05-18 23:14 | XMS REPORT | Continuity of Care Document ---
:1995 Author Organization [facility] Care Team Providers Name Role Phone [facility] Unavailable Un available Problems Problem Status Onset Classification Date Comments Sourc e Date Reported SCABIES Active 03/28/20 Condition 03/28/2015 [facility] RASH, SKIN Active 03/01/20 Condition 03/28/2015 [facility] SINUSITIS, ACUTE Active 09/21/20 Condition 03/28/2015 [facility] BACK PAIN Active 09/21/20 Condition 03/28/2015 [facility] Medical Group ROUTINE GENERAL Active 12/11/19 Condition 03/28/2015 MEDICAL EXAM[facility] 14 Medical CARE FACL Group SVT Active 09/23/20 Condition 03/28/2015 [facility] CHEST PAIN Active 09/23/20 Condition 03/28/2015 [facility] SYNCOPE Active 07/28/20 Condition 03/28/2015 [facility] LOSS OF WEIGHT Active 07/28/20 Condition 03/28/2015 [facility] MALAISE AND FATIGUE Active 07/25/20 Condition 03/28/2015 [facility] FAMILY HISTORY OF Active Condition 03/28/2015 [facility] DIABETES [facility] Group FAMILY HISTORY OF Active Condition 03/28/2015 [facility] HYPERTENSION Medical Group FAMILY HISTORY OF Active Condition 03/28/2015 M H THYROID DISEASE Medi shin Group ABNORMAL Active Condition 03/28/[address] dical Group ORTHOSTATIC Active Condition 03/28/2015 [facility] Medications Medication Details Route Status Patient Ordering Order Source Instructions Provider Date ELIMITE 5 % CREA Use as Active directed on 015 Medical label Group MOMETASONE FUROATE apply to Active 0.1 % CREA rash tid 015 [facility] CEFUROXIME AXETIL 1 po bid No MH 500 MG TABS Longer 014 Medical Active Group CYCLOBENZAPRINE 1 po q 8hrs Active HCL 10 MG TABS prn back 014 Medical pain Group CYCLOBENZAPRINE 1 po q 8hrs Active HCL 10 MG TABS prn back 014 Medical pain Group CYCLOBENZAPRINE 1 po q 8hrs No MH HCL 10 MG TABS prn back Longer 014 Medical pain Active Group MIDODRINE HCL 5 MG ONE TAB TID No M H TABS Longer 014 Medical Active Group Allergies, Adverse Reactions, Alerts No Known Medication Allergies Immunizations Immunization Date Given Site Status Last Comments Source Updated dT (Diphtheria and 07/08/2009 completed Medical Tetanus) booster Julio up MPSV4 07/08/2009 completed Medica l (meningococcal Group polysaccharide vaccination) hepatitis A 07/08/2009 completed Medi shin immunization #1 Grou p dT (Diphtheria and 07/08/2009 completed Medical Tetanus) booster Julio up given DPT immunization #5 07/10/1999 completed Medical Group oral polio vaccine 07/10/1999 completed Medical (OPV) #4 Group MMR virus 07/10/1999 completed Medica l immunization #2 Grou p MMR (measles, 07/10/1999 completed Me dical mumps, rubella) Grou p virus immunization #2 DPT immunization #4 10/29/1996 completed Medical Group Hemophilus 10/29/1996 completed Medic al influenza B Group immunization #4 MMR virus 10/29/1996 completed Medica l immunization #1 Grou p MMR (measles, 10/29/1996 completed [facility] dical mumps, rubella) Grou p virus immunization #1 hepatitis B vaccine 03/11/1996 completed Medical #3 Group DPT immunization #3 03/11/1996 completed Medical Group Hemophilus 03/11/1996 completed Medic al influenza B Group immunization #3 oral polio vaccine 03/11/1996 completed Medical (OPV) #3 Group DPT immunization #2 01/14/1996 completed Medical Group Hemophilus 01/14/1996 completed Medic al influenza B Group immunization #2 oral polio vaccine 01/14/1996 completed Medical (OPV) #2 Group Hemophilus 1995 completed Medic al influenza B Group immunization #1 oral polio [...] Name Results Value Reference Date Interpretation Comments Eve rce Range Chemistry SODIUM 136 135 - 143 [...] Date Comments Source Weight 138 03/28/2015 Medical Grou p Temperature Oral (F) 98.1 F 03/28/2015 [facility] shin Group Systolic (mm Hg) 110 03/28/2015 Medical Group Diastolic (mm Hg) 75 03/28/2015 Medical Group Heart Rate 80 03/28/2015 Medical Grou p Respitory Rate 18 03/28/2015 Medical Gr oup Weight 139 03/24/2015 Medical Grou p Respitory Rate 18 03/24/2015 Medical Gr oup Systolic (mm Hg) 113 03/24/2015 Medical Group Diastolic (mm Hg) 71 03/24/2015 Medical Group Heart Rate 78 03/24/2015 Medical Grou p Weight 138 03/01/2015 Medical Grou p Systolic (mm Hg) 110 03/01/2015 Medical Group Diastolic (mm Hg) 75 03/01/2015 Medical Group Temperature Oral (F) 98.2 F 03/01/2015 Medi shin Group Heart Rate 76 03/01/2015 [facility] Grou p Respitory Rate 16 03/01/2015 Medical Gr oup Weight 130 09/21/2014 Medical Grou p Temperature Oral (F) 98.8 F 09/21/2014 Medi shin Group Systolic (mm Hg) 118 09/21/2014 Medical Group Diastolic (mm Hg) 81 09/21/2014 Medical Group Heart Rate 92 09/21/2014 Medical Grou p Weight 130 06/03/2014 Medical Grou p Systolic (mm Hg) 108 06/03/2014 Medical Group Diastolic (mm Hg) 70 06/03/2014 Medical Group Temperature Oral (F) 97.6 F 06/03/2014 Medi shin Group Heart Rate 71 06/03/2014 Medical Grou p Respitory Rate 10 06/03/2014 Medical Gr oup Weight 133 12/11/2013 Medical Grou p Temperature Oral (F) 97.7 F 12/11/2013 Medi shin Group Systolic (mm Hg) 120 12/11/2013 Medical Group Diastolic (mm Hg) 68 12/11/2013 Medical Group Heart Rate 76 12/11/2013 Medical Grou p Weight 127.8 04/23/2013 Medical Grou p Systolic (mm Hg) 90 04/23/2013 Medical Group Diastolic (mm Hg) 68 04/23/2013 Medical Group Heart Rate 72 04/23/2013 Medical Grou p Heart Rate 68 10/23/2012 Medical Grou p Systolic (mm Hg) 90 10/23/2012 Medical Group Diastolic (mm Hg) 50 10/23/2012 Medical Group Weight 131.8 09/23/2012 Medical Grou p Heart Rate 84 09/23/2012 Medical Grou p Systolic (mm Hg) 98 09/23/2012 Medical Group Diastolic (mm Hg) 70 09/23/2012 Medical Group Weight 131.6 09/04/2012 Medical Grou p Temperature Oral (F) 98.5 F 09/04/2012 Medi shin Group Heart Rate distal pulses 2+ 09/04/2012 Medical Group Systolic (mm Hg) 90 09/04/2012 Medical Group Diastolic (mm Hg) 60 09/04/2012 Medical Group Weight 128 08/19/2012 Medical Grou p Heart Rate 72 08/19/2012 Medical Grou p Systolic (mm Hg) 105 08/19/2012 Medical Group Diastolic (mm Hg) 70 08/19/2012 Medical Group Weight 129.8 08/06/2012 Medical Grou p Heart Rate 84 08/06/2012 Medical Grou p Systolic (mm Hg) 95 08/06/2012 Medical Group Diastolic (mm Hg) 60 08/06/2012 Medical Group Weight 123 07/28/2012 Medical Grou p Temperature Oral (F) 98.2 F 07/28/2012 Medi shin Group Respitory Rate 18 07/28/2012 Medical Gr oup Heart Rate distal pulses 2+ 07/28/2012 Medical Group Systolic (mm Hg) 90 07/28/2012 Medical Group Diastolic (mm Hg) 60 07/28/2012 Medical Group Height 67 07/25/2012 Medical Grou p Weight 122 07/25/2012 Medical Grou p Temperature Oral (F) 98.2 F 07/25/2012 Medi shin Group Heart Rate 76 07/25/2012 Medical Grou p Systolic (mm Hg) 106 07/25/2012 Medical Group Diastolic (mm Hg) 74 07/25/2012 Medical Group Encounters Location Location Encounter Encounter Reason Attending ADM DC Stat us Source Details Type Number For Provider Date Date Visit [facility] [place] Office [id number] Majid 06/03 06/03 [place] Medical Visit 010 MD Rambo /2013 Med ical [place] [facility] Lab Report [id number] Majid 06/03 06/03 [place] Medical 510 MD Rambo /2013 Med ical [place] [facility] Lab Report [id number] Horace 09/21 09/21 [place] Medical 810 LISA Hernández /2013 Med ical [place] [facility] Lab Report [id number] Horace 11/14 11/14 [place] 090 LISA Hernández /2014 [facility] [place] [facility] South Office [id number] Horace 03/01 03/01 [place] Medical Visit 210 LISA Hernández /2014 Med ical [place] [facility] Office [id number] Majid 03/24 03/24 [facility] [place] Medical Visit 830 MD Rambo /2014 [facility] Cardiology [facility] Office [id number] Majid 03/28 03/28 [place] Medical Visit 830 MD Rambo /2014 [facility] Procedures Procedure Code Date Perfomer Comments Source echocardiogram, [address] 08/12/2012 Complete Medica l complete Group Assessment and Plan No Data Provided for This Section Plan of Care No Data Provided for This Section Social History No Data Provided for This Section Family History No Data Provided for This Section Advance Directives No Data Provided for This Section Functional Status No Data Provided for This Section
--- OUTSIDE RECORDS SUMMARY | 2020-05-18 23:14 | XMS REPORT | Clinical Summary ---
:1995 Author Organization [facility] Address 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
--- OUTSIDE RECORDS SUMMARY | 2020-05-18 23:15 | XMS REPORT | Continuity of Care Document ---
:1995 Author Organization [facility] t Address [address] [place] [address] Care Team Providers Name Role Phone Asked, Pcp Primary Care Physician Unavailable DR MAHNAZ Attending Clinician Unavailable MAXIMILIAN Attending Clinician Unavailable MERY Attending Clinician Unavailable ARLIN Attending Clinician Unavailable DELFINA Attending Clinician Unavailable CALLY Attending Clinician Unavailable DR ROSY Attending Clinician Unavailable DR MAHNAZ Admitting Clinician Unavailable DR ROSY Admitting Clinician Unavailable Problems Condition Condition Condition Status Onset Resolution Last Treating Co mments Source Name Details Category Date Date Treatment Clinician Date SCABIES Condition Active 2015-03-28 Nv moria 03-28 08:25:51 l SCABIES 00:00: Rd 00 Active 03/28/2015 [facility] RASH, SKIN Condition Active 2015-03-28 Memoria - 08:25:51 l RASH, 00:00: Rd SKIN 00 Active 03/01/2015 [facility] SINUSITIS, Condition Active 2013-112015-03-28 Memoria ACUTE 11-21 08:25:51 l MAXILLARY 00:00: Rd SINUSITIS, 00 ACUTE MAXILLARY Active 09/21/2014 [facility] BACK PAIN Condition Active 2013-112015-03-28 Memoria 11-21 08:25:51 l BACK 00:00: Rd PAIN 00 Active 09/21/2014 [facility] ROUTINE Condition Active 2015-03-28 Nv moria GENERAL 12-11 08:25:51 l MEDICAL ROUTINE 00:00: Karthik n EXAM@HEALT GENERAL 00 H CARE MEDICAL FACL EXAM@[facility] H CARE FACL Active 12/11/2013 Condition [facility] SVT Condition Active 2011-112015-03-28 Mem oria 1- 08:25:51 l SVT 00:00: [place] 00 Active 09/23/2012 [facility] CHEST PAIN Condition Active 2011-112015-03-28 Memoria 1-13 08:25:51 l CHEST 00:00: [place] PAIN 00 Active 09/23/2012 [facility] SYNCOPE Condition Active 2015-03-28 Me moria - 08:25:51 l SYNCOPE 00:00: [place] 00 Active 07/28/2012 [facility] LOSS OF Condition Active 2015-03-28 Me moria WEIGHT 9-17 08:25:51 l LOSS OF 00:00: [place] WEIGHT 00 Active 07/28/2012 [facility] MALAISE Condition Active 2015-03-28 Me moria AND 914 08:25:51 l FATIGUE MALAISE 00:00: Karthik n AND 00 FATIGUE Active 07/25/2012 [facility] History of History of Problem Resolve Univers transient transient HL7.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 Physic i ans History of History of Problem Resolve Univers Vasovagal Vasovagal HL7.CCDAR2 d ity of syncope syncope [place] Physici ans Non-smoker Non-smoker Problem Active U nivers HL7.CCDAR2 ity of [place] Physici ans Autonomic Autonomic Problem Active Uni vers neuropathy neuropathy HL7.CCDAR2 ity of [place] Physici ans Chronic Chronic Problem Active Univers pain pain HL7.CCDAR2 ity of [place] Physici ans Headache Headache Problem Active Unive rs HL7.CCDAR2 ity of [place] Physici ans History of History of Problem Active U nivers Lyme Lyme HL7.CCDAR2 ity of disease disease [place] Physici ans White White Problem Active Univers matter matter HL7.CCDAR2 [place] abnormal[place] MRI Physic i of brain of brain ans Fever Fever Problem Active Univers HL7.CCDAR2 ity of [place] Physici ans Joint pain Joint pain Problem Active U nivers HL7.CCDAR2 ity of [place] Physici ans Night Night Problem Active Univers sweats sweats HL7.CCDAR2 ity of [place] Physici ans Accelerate Accelerate Problem Active U nivers d d HL7.CCDAR2 [place] hypertens[place] hypertens[place] Ph ysici on on ans Dysautonom Dysautonom Problem Active U nivers ia ia HL7.CCDAR2 ity of [place] Physici ans Essential Essential Problem Active Uni vers (primary) (primary) HL7.CCDAR2 ity [place] hypertens[place] Physici ans FAMILY Condition Active 2015-03-28 Mem oria HISTORY OF 08:25:51 l DIABETES FAMILY Karthik n HISTORY OF DIABETES Active Condition 03/28/2015 [facility] FAMILY Condition Active 2015-03-28 Mem oria HISTORY OF 08:25:51 l HYPERTENSI FAMILY Herm gracy ON HISTORY OF HYPERTENSI ON Active Condition 03/28/2015 [facility] FAMILY Condition Active 2015-03-28 Mem oria HISTORY OF 08:25:51 l THYROID FAMILY [place] DISEASE HISTORY OF THYROID DISEASE Active Condition 03/28/2015 [facility] ABNORMAL Condition Active 2015-03-28 M emoria ELECTROCAR 08:25:51 l DIOGRAM ABNORMAL Negin nn ELECTROCAR DIOGRAM Active Condition 03/28/2015 [facility] ORTHOSTATI Condition Active 2015-03-28 Memoria C 08:25:51 l HYPOTENSIO Karthik n N ORTHOSTATI C HYPOTENSIO N Active Condition 03/28/2015 [facility] Allergies, Adverse Reactions, Alerts This patient has no known allergies or adverse reactions. Family History Family Member Diagnosis Comments Start Date Stop Date Source Mother Family history of [facility] hypertension Physicians Mother Family history of [facility] [place] asthma Physicians Mother Family history of [facility] angina Physicians Social History Social Habit Start Date Stop Date Quantity Comments Source Sex Assigned At [facility] Alcohol intake 2018-04-10 2018[facility]04[facility] non-drinker of alcohol (finding) Smoking Status Start Date Stop Date Source Never smoker Marienthal Nikko Medications Ordered Filled Start Stop Current Ordering Indication Dosage Frequency Signature Comments Components Source Medication Medication Date Date Medication? Clinician (SIG) Name Name Amoxicillin Amoxicillin 2016-11 Yes ISAIAH 1 Q0.3333D TAKE 1 [facility] 500 MG Oral 500 MG Oral 0-18 MAXIMILIAN TABLET 3 ity of Tablet Tablet 00:00: M.D. TIMES [place] 00 DAILY Physici ans Gabapentin Gabapentin 2016-11 Yes ISAIAH 4 TAKE 4 Univers 100 MG Oral 100 MG Oral 0-05 MAXIMILIAN CAPSULE ity of Capsule Capsule 00:00[place] Gabapentin Gabapentin Yes ISAIAH TAKE 1 Univers 100 MG Oral 100 MG Oral 7-26 MAXIMILIAN CAPSULE ity of Capsule Capsule 00:00: M.D. BEDTIME.MA [place] 00 [place] INCREASE Physici TO 3 ans CAPSULES AT BEDTIME TOLERATED. ELIMITE 5 % Yes Use as Aquilino olga CREA 5-18 directed l 00:00: on label MOMETASONE Yes apply to Mem oria FUROATE 0.1 4-21 rash tid l % CREA 00:00: Rd 00 CEFUROXIME 2013-1 No 1 po bid Mem [facility]ria AXETIL 500 1-11 l MG TABS 00:00: [place] 00 CYCLOBENZAP 2013-11 Yes 1 po q [place] olga RINE HCL 10 1-11 8hrs prn l MG TABS 00:00: back pain Negin nn 00 CYCLOBENZAP 2013-11 Yes 1 po q [place] RINE HCL 10 1-11 8hrs prn l MG TABS 00:00: back pain Negin nn 00 CYCLOBENZAP 2013- No 1 po q [place] olga RINE HCL 10 1-11 8hrs prn l MG TABS 00:00: back pain Negin nn 00 MIDODRINE 0 No ONE TAB Memor ia HCL 5 MG 1-31 TID l TABS 00:00: 00 Vital Signs Vital Name Observation Time Observation Value Comments Source Weight 2015-03-28 13:25:51 [facility] Temperature Oral (F) 2015-03-28 13:25:51 98.1 F [facility] Systolic (mm Hg) 2015-03-28 13:25:[address] Diastolic (mm Hg) 2015-03-28 13:25:51 [facility] [place] Heart Rate 2015-03-28 13:25:51 [facility] [place] Respitory Rate 2015-03-28 13:25:51 Mem[facility] al [place] Weight 2015-03-24 18:51:32 [facility] [place] Respitory Rate 2015-03-24 18:51:[address] Systolic (mm Hg) 2015-03-24 18:51:[address] Diastolic (mm Hg) 2015-03-24 18:51:32 Mem orial [place] Heart Rate 2015-03-24 18:51:32 [facility] [place] Weight 2015-03-01 12:39:12 [facility] [place] Systolic (mm Hg) 2015-03-01 12:39:12 [place] rial [place] Diastolic (mm Hg) 2015-03-01 12:39:12 Mem orial [place] Temperature Oral (F) 2015-03-01 12:39:12 98.2 F [facility] [place] Heart Rate 2015-03-01 12:39:[address] Respitory Rate 2015-03-01 12:39:[address] Weight 2014-09-21 14:25:[address] Temperature Oral (F) 2014-09-21 14:25:13 98.8 F [facility] [place] Systolic (mm Hg) 2014-09-21 14:25:13 [place] rial [place] Diastolic (mm Hg) 2014-09-21 14:25:13 Mem orial [place] Heart Rate 2014-09-21 14:25:[address] Weight 2014-06-03 15:17:[address] Systolic (mm Hg) 2014-06-03 15:17:[address] Diastolic (mm Hg) 2014-06-03 15:17:[address] Temperature Oral (F) 2014-06-03 15:17:41 97.6 F [facility] [place] Heart Rate 2014-06-03 15:17:41 [facility] [place] Respitory Rate 2014-06-03 15:17:[address] Weight 2013-12-11 19:30:[address] Temperature Oral (F) 2013-12-11 19:30:[address] Systolic (mm Hg) 2013-12-11 19:30:02 Aqu[place] rial [place] Diastolic (mm Hg) 2013-12-11 19:30:[address] Heart Rate 2013-12-11 19:30:[address] Weight 2013-04-23 21:01:[address] Systolic (mm Hg) 2013-04-23 21:01:[address] Diastolic (mm Hg) 2013-04-23 21:01:50 Mem orial [place] Heart Rate 2013-04-23 21:01:[address] Heart Rate 2012-10-23 22:01:[address] Systolic (mm Hg) 2012-10-23 22:01:[address] Diastolic (mm Hg) 2012-10-23 22:01:[address] Weight 2012-09-23 22:05:01 [facility] [place] Heart Rate 2012-09-23 22:05:[address] Systolic (mm Hg) 2012-09-23 22:05:[address] Diastolic (mm Hg) 2012-09-23 22:05:01 Mem orial [place] Weight 2012-09-04 17:43:[address] Temperature Oral (F) 2012-09-04 17:43:[address] Heart Rate 2012-09-04 17:43:[address] Systolic (mm Hg) 2012-09-04 17:43:[address] Diastolic (mm Hg) 2012-09-04 17:43:[address] Weight 2012-08-19 20:41:[address] Heart Rate 2012-08-19 20:41:[address] Systolic (mm Hg) 2012-08-19 20:41:11 Aqu[place] rial [place] Diastolic (mm Hg) 2012-08-19 20:41:[address] Weight 2012-08-06 18:33:[address] Heart Rate 2012-08-06 18:33:21 [facility] [place] Systolic (mm Hg) 2012-08-06 18:33:21 Aqu[place] rial [place] Diastolic (mm Hg) 2012-08-06 18:33:[address] Weight 2012-07-28 20:13:03 [facility] [place] Temperature Oral (F) 2012-07-28 20:13:[address] Respitory Rate 2012-07-28 20:13:03 Memori al [place] Heart Rate 2012-07-28 20:13:[address] Systolic (mm Hg) 2012-07-28 20:13:[address] Diastolic (mm Hg) 2012-07-28 20:13:03 Mem orial [place] Height 2012-07-25 17:56:[address] Weight 2012-07-25 17:56:40 [facility] [place] Temperature Oral (F) 2012-07-25 17:56:40 98.2 F [facility] [place] Heart Rate 2012-07-25 17:56:[address] Systolic (mm Hg) 2012-07-25 17:56:[address] Diastolic (mm Hg) 2012-07-25 17:56:40 Mem orial [place] Procedures Procedure Date / Time Performed Performing Clinician [facility] e echocardiogram, complete 2012-08-12 05:00:00 Mem orial [place] Plan of Care Planned Activity Planned Date Details Comments Source Future Scheduled 2020-06-11 INFLUENZA VACCINE [place] [facility] Test 00:00:00 [code = INFLUENZA VACCINE] Encounters Start End Encounter Admission Attending Care Care Encounter Source Date/Time Date/Time Type Type Clinicians Facility Department ID 2018-04-16 2018-04-16 Outpatient E MAHNAZ YESSENIA [facility] [id number] [place] 13:32:00 14:17:00 [facility] 2017-08-15 2017-08-15 AppointDANIEL [facility] [id number] [facility] 09:00:00 09:00:00 t; [facility] 2017-08-07 2017-08-07 DANIEL Delgado [id number] Univers 09:30:00 09:30:00 t; Edouard HENDRIX M.D. [place] Comfort HENDRIX M.D. ans 2017 2017 DANIEL Aldrich [facility] [id number] Univers 08:30:00 08:30:00 t; ISAIAH YAO M.D. ity of [place], [place] Physici ans 2017-04-23 2017-04-23 DANIEL Delgado [id number] Univers 09:30:00 09:30:00 t; SIMEONEdouard ENGLAND M.D. [place] SIMEON, Physi ci M.D. ans 2017-01-23 2017-01-23 Appointmen ARLIN, [facility] UTP [id number] Univers 09:00:00 09:00:00 t; LAURA OLIVEROS of LAURA [place] Physici ans 2016-10-10 2016-10-10 Appointmen MERY, [facility] UTP [id number] Univers 11:00:00 11:00:00 t; Edouard HENDRIX M.D. [place] SIMEON, Physi ci M.D. ans 2016-09-24 2016-09-24 Appointmen ARLIN, [facility] UTP [id number] Univers 15:30:00 15:30:00 t; LAURA OLIVEROS of [facility] Physic ans 2016-09-20 2016-09-20 Appointmen DELFINA, [facility] UTP [id number] Univers 11:30:00 11:30:00 t; DELFINA, DEVICE ity of DEVICE [place] Physic ans 2016-08-29 [facility] UTP [id number] Univers 11:15:00 11:15:00 t; Edouard HENDRIX M.D. [place] SIMEON Physi ci M.DEva ans 2016-07-25 [id number] Univers 10:15:00 10:15:00 t; DEVICE ity of [place], [place] DEVICE Physici ans 2016-07-04 2016-07-04 Appointmen MERY, [facility] UTP [id number] Univers 11:30:00 11:30:00 t; Edouard HENDRIX M.D. [place] SIMEON, Physi ci M.DEva ans 2016-05-30 2016-06-01 Outpatient E ROSY, [facility] [id number] [place] 00:59:00 11:15:00 [facility] Results Test Description Test Time Test Comments Results Result [facility] e Comments XR HAND LEFT 2018-04-16 Left hand, 3 COMPLETE 3 VIEWS 14:17:15 viewsLocation *OW* code: [id number] HISTORY: [id number]: Traumatic injuryCOMMENTS: AP, lateral, and oblique views of the left hand demonstrate no acutefracture or malalignment. The soft tissues are unremarkable.IMPRE SSION: No acute radiographic abnormality. Chemistry 2014-09-21 136 [facility] 14:58:00 [place] Chemistry 2014-09-21 3.9 Memorial 14:58:00 Rd Chemistry 2014-09-21 3.9 [facility] 14:58:00 [place] Chemistry 2014-09-21 9.4 [facility] 14:58:00 [place] Chemistry 2014-09-21 1.06 [facility] 14:58:00 [place] Chemistry 2014-09-21 13 [facility] 14:58:00 [place] Chemistry 2014-09-21 59 [facility] 14:58:00 [place] Chemistry 2014-09-21 20 [facility] 14:58:00 [place] Chemistry 2014-09-21 13 Memorial 14:58:00 Rd Chemistry 2014-09-21 60 [facility] 14:58:00 [place] Serology 2014-06-03 17:19:00 Test Item Value Reference Range Interpretation Comme nts VARICELLA AB (test code = VARICELLA AB) 2.50 1 [facility] 17:19:00 Test Item Value Reference Range Interpretation Comments VARICELLA AB (test code = VARICELLA 2.50 1 AB) [facility]
--- NOTE | 2020-05-19 02:26 | ER ---
Nurse's Notes [facility] Name: Iain Felix Age: 24 yrs Sex: Male : 1995 Arrival Date: 05/18/2020 Time: 23:15 Bed Waiting Private MD: Diagnosis: Presentation: 05/18 23:42 Chief complaint: Patient states: Chest pain x 1 hour with shortness of breath, rash lp1 that comes and goes for the last 2 weeks;. Coronavirus screen: Patient denies a cough. Patient reports shortness of breath or difficulty breathing. Patient denies measured and/or subjective temperature greater than 100.4F prior to today's visit. Patient denies travel on a cruise ship or to a country the [facility] currently lists as an affected area. Patient denies contact with known and/or suspected case of COVID-19. Ebola Screen: No symptoms or risks identified at this time. Initial Sepsis Screen: Does the patient meet any 2 criteria? No. Patient's initial sepsis screen is negative. Does the patient have a suspected source of infection? No. Patient's initial sepsis screen is negative. Risk Assessment: Do you want to hurt yourself or someone else? Patient reports no desire to harm self or others. Onset of symptoms was May 18, 2020. 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 - Social history:: Smoking status: Patient denies any tobacco usage or history of. Screenin:44 Abuse screen: Denies threats or abuse. Denies injuries from another. Nutritional lp1 screening: No deficits noted. Tuberculosis screening: No symptoms or risk factors identified. Vital Signs: 23:42 BP 134 / 97; Pulse 89; Resp 18; Temp 98.3(O); Pulse Ox 100% on R/A; Weight 72.57 kg lp1 (R); Height 5 ft. 9 in. (175.26 cm); Pain 8/10; 23:42 Body Mass Index 23.63 (72.57 kg, 175.26 cm) lp1 ED Course: 23:15 Patient arrived in ED. cf2 23:43 Triage completed. lp1 23:43 Arm band placed on right wrist. lp1 Administered Medications: No medications were administered Outcome: 05/19 02:25 Patient left the ED. lp1 Signatures: Ranjana Kim RN RN lp1 Avelina Hardy cf2
[2020-05-19 02:41] VITALS: BP 134/97; TEMP 98.3; O2SAT 100
== END 2020-05-19 02:25 | disposition left against medical advice (07) ==
LOC: ER 23:12
DX: R06.02 Shortness of breath (principal); Z53.21 Procedure and treatment not carried out due to patient leaving prior to being seen by health care provider
CPT/HCPCS: 99281